=== PATIENT | female | born 1945 | race Caucasian/White ===

== ENCOUNTER 2017-10-03 11:12 | Emergency (ER) | payer BC, OTHER ==
[2017-10-03] MEDS ORDERED: Sodium Chloride 0.9% 2.5 ML Syringe FLUSH PRN (11:37)
[2017-10-03] MEDS ORDERED: Aspirin 81 MG Tab.Chew PO ONE (11:37)
[2017-10-03] MEDS ORDERED: Sodium Chloride 0.9% 10 ML Syringe FLUSH PRN (11:37)
--- NOTE | 2017-10-03 11:43 | EDM.PDOC ---
ED HPI GENERAL MEDICAL PROBLEM - General Chief Complaint: Chest Pain Stated Complaint: CHEST PAIN Time Seen by Provider: 10/03/17 11:15 - History of Present Illness INITIAL COMMENTS - FREE TEXT/NARRATIVE: HISTORY AND PHYSICAL: History of present illness: The patient is a 72-year-old female who follows with Dr. Mendez at [facility] and has a history of hypertension hypercholesterolemia and diabetes for which she takes medications and who presented to the ER today with sudden onset of right upper back pain which radiated to her right upper chest wall which has since resolved. 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 She was not sweaty and lightheaded or dizzy with this and was not nauseated. She has had no urinary complaints no GI complaints respiratory symptoms. She said she did feel little short of breath with it and did not take any medications for it. She put a heating pad on her right upper back and laid down and the pain is now clearly resolved with only a twinge left. Patient says that she had some anxiety in the past and had a heart catheter performed a proximally 2000 which was normal but has not had any heart testing since that time. She has no pulmonary disease she is aware of and has no upper respiratory complaints prior to this event. She has had no recent slips or falls and no recent trauma to the area. She has no breast pain and says that she feels some discomfort when she pushes on her right anterior chest wall area. She has no pain with movement of her upper extremity or neck. She has no neck or back pain. Review of systems: As per history of present illness and below otherwise all systems reviewed and negative. Past medical history: As per history of present illness and as reviewed below otherwise noncontributory. Surgical history: As per history of present illness and as reviewed below otherwise noncontributory. Social history: No reported history of drug or alcohol abuse. Family history: As per history of present illness and as reviewed below otherwise noncontributory. Physical exam: Gen.: Well-developed well-nourished female who is nontoxic and speaking clearly and easily in the ED. Vital signs have been reviewed by me. HEENT: Atraumatic, normocephalic, pupils reactive, negative for conjunctival pallor or scleral icterus, mucous membranes moist, throat clear, neck supple, nontender, trachea midline. Lungs: Clear to auscultation, breath sounds equal bilaterally, chest with slight tenderness to palpation of the right upper outer chest wall area without defects deformities crepitus or soft tissue swelling. There is no work of breathing stridor or sensory muscle use Heart: S1S2, regular, negative for clicks, rubs, or JVD. Abdomen: Soft, nondistended, nontender. Negative for masses or hepatosplenomegaly. Negative for costovertebral tenderness. Pelvis: Stable nontender. Genitourinary: Deferred. Rectal: Deferred. Extremities: Atraumatic, negative for cords or calf pain. Neurovascular unremarkable. No pedal edema or leg asymmetry Neuro: Awake, alert, oriented. Cranial nerves II through XII unremarkable. Cerebellum unremarkable. Motor and sensory unremarkable throughout. Exam nonfocal. Back: There are no midline step-offs tenderness defects of the thoracic or lumbar spine no posterior rib tenderness on the right no soft tissue swelling defects deformities or tenderness with palpation. Diagnostics: EKG chest x-ray CBC CMP INR troponin d-dimer CTA of the chest UA Therapeutics: IV O2 monitor aspirin All testing results were discussed with the patient and daughter at bedside. I have expressed my concern about this sclerotic lesion in the right lateral rib # 3 and the need to have this followed up with her provider in the clinic. Patient states understanding. I have offered the patient an observation admission although this pain is very atypical and she currently is not having any pain but she would prefer to follow-up with her doctor in the clinic. Advised her on reasons to return Impression: Episode of right upper back/right upper chest wall pain resolved; sclerotic lesion in right lateral rib #3 etiology unclear Definitive disposition and diagnosis as appropriate pending reevaluation and review of above. - Related Data Allergies Allergy/AdvReac Type Severity Reaction Status Date / Time No Known Allergies Allergy Verified 10/03/17 11:27 Past Medical History Cardiovascular History: Reports: Hypertension Respiratory History: Reports: Asthma Gastrointestinal History: Reports: Other (See Below) Other Gastrointestinal History: stomach ulcers Psychiatric History: Reports: Anxiety Endocrine/Metabolic History: Reports: Diabetes, Type II Social & Family History - Family History Family Medical History: Noncontributory - Tobacco Use Smoking Status *Q: Never Smoker - Recreational Drug Use Recreational Drug Use: No ED ROS GENERAL - Review of Systems Review Of Systems: ROS reveals no pertinent complaints other than HPI. ED EXAM, GENERAL - Physical Exam Exam: See Below (See dictation) Course - Vital Signs Last Recorded V/S: Last Vital Signs Temp 36.6 C 10/03/17 11:22 Pulse 88 10/03/17 11:22 Resp 20 10/03/17 11:22 BP 165/78 H 10/03/17 11:22 Pulse Ox 96 10/03/17 11:36 - Orders/Labs/Meds Orders: Active Orders 24 hr Category Date Time Status Cardiac Monitoring [RC] . DIRECTED Care 10/03/17 11:36 Active EKG Documentation Completion [RC] STAT Care 10/03/17 11:36 Active Oxygen Therapy, ED [RC] ASDIRECTED Care 10/03/17 11:36 Active Pulse Oximetry [RC] ASDIRECTED Care 10/03/17 11:36 Active Ang Chest [CT] Stat Exams 10/03/17 12:08 Taken Chest 2V [CR] Stat Exams 10/03/17 11:37 Taken UA W/MICROSCOPIC [URIN] Stat Lab 10/03/17 13:00 Received Sodium Chloride 0.9% [Saline Flush] Med 10/03/17 11:37 Active 10 ml FLUSH ASDIRECTED PRN Sodium Chloride 0.9% [Saline Flush] Med 10/03/17 11:37 Active 2.5 ml FLUSH ASDIRECTED PRN Saline Lock Insert [OM.PC] Stat Oth 10/03/17 11:36 Ordered Medication Orders Sodium Chloride (Saline Flush) 10 ml FLUSH ASDIRECTED PRN PRN Reason: Keep Vein Open Last Admin: 10/03/17 11:42 Dose: 10 ml Sodium Chloride (Saline Flush) 2.5 ml FLUSH ASDIRECTED PRN PRN Reason: Keep Vein Open Last Admin: 10/03/17 11:42 Dose: 2.5 ml Labs: Laboratory Tests 10/03/17 10/03/17 10/03/17 Range/Units 11:20 11:20 11:20 WBC 11.21 H (4.0-11.0) K/uL RBC 4.79 (4.30-5.90) M/uL Hgb 13.6 (12.0-16.0) g/dL Hct 42.0 (36.0-46.0) % MCV 87.7 (80.0-98.0) fL MCH 28.4 (27.0-32.0) pg MCHC 32.4 (31.0-37.0) g/dL RDW Std Deviation 47.2 (28.0-62.0) fl RDW Coeff of Saran 15 (11.0-15.0) % Plt Count 371 (150-400) K/uL MPV 9.50 (7.40-12.00) fL Neut % (Auto) 71.8 (48.0-80.0) % Lymph % (Auto) 17.9 (16.0-40.0) % Williamson % (Auto) 8.0 (0.0-15.0) % Eos % (Auto) 2.1 (0.0-7.0) % Baso % (Auto) 0.2 (0.0-1.5) % Neut # (Auto) 8.0 H (1.4-5.7) K/uL Lymph # (Auto) 2.0 (0.6-2.4) K/uL Williamson # (Auto) 0.9 H (0.0-0.8) K/uL Eos # (Auto) 0.2 (0.0-0.7) K/uL Baso # (Auto) 0.0 (0.0-0.1) K/uL Nucleated RBC % 0.0 /100WBC Nucleated RBCs # 0 K/uL INR 0.96 (0.86-1.11) D-Dimer, Quantitative 0.57 H (0.0-0.52) mg/LFEU Sodium 140 (136-146) mmol/L Potassium 3.5 (3.5-5.1) mmol/L Chloride 103 (98-110) mmol/L Carbon Dioxide 26 (21-31) mmol/L BUN 15 (6.0-23.0) mg/dL Creatinine 0.8 (0.6-1.5) mg/dL Est Cr Clr Drug Dosing 56.50 mL/min Estimated GFR (MDRD) > 60.0 ml/min Glucose 100 (60-110) mg/dL Calcium 9.9 (8.8-10.8) mg/dL Total Bilirubin 0.5 (0.1-1.5) mg/dL AST 22 (5-40) IU/L ALT 30 (8-54) IU/L Alkaline Phosphatase 143 (40-150) Troponin I < 0.10 (0.0-0.29) NG/ML Total Protein 8.3 H (6.0-8.0) g/dL Albumin 4.3 (3.4-4.8) g/dL Globulin 4.0 H (2.0-3.5) g/dL Albumin/Globulin Ratio 1.1 L (1.3-2.8) Meds: Medications Generic Name Dose Route Start Last Admin Trade Name Freq PRN Reason Stop Dose Admin Sodium Chloride 10 ml 10/03/17 11:37 10/03/17 11:42 Saline Flush FLUSH 10 ml ASDIRECTED PRN Administration Keep Vein Open Sodium Chloride 2.5 ml 10/03/17 11:37 10/03/17 11:42 Saline Flush FLUSH 2.5 ml ASDIRECTED PRN Administration Keep Vein Open Discontinued Medications Generic Name Dose Route Start Last Admin Trade Name Freq PRN Reason Stop Dose Admin Aspirin 324 mg 10/03/17 11:37 10/03/17 11:42 Aspirin PO 10/03/17 11:38 324 mg ONETIME ONE Administration Departure - Departure Time of Disposition: 14:06 Disposition: Home, Self-Care 01 Condition: Good Clinical Impression: Right-sided chest pain - Discharge Information Referrals: PCP,None [Primary Care Provider] - Forms: ED Department Discharge Additional Instructions: The following information is given to patients seen in the emergency department who are being discharged to home. This information is to outline your options for follow-up care. We provide all patients seen in our emergency department with a follow-up referral. The need for follow-up, as well as the timing and circumstances, are variable depending upon the specifics of your emergency department visit. If you don't have a primary care physician on staff, we will provide you with a referral. We always advise you to contact your personal physician following an emergency department visit to inform them of the circumstance of the visit and for follow-up with them and/or the need for any referrals to a consulting specialist. The emergency department will also refer you to a specialist when appropriate. This referral assures that you have the opportunity for followup care with a specialist. All of these measure are taken in an effort to provide you with optimal care, which includes your followup. Under all circumstances we always encourage you to contact your private physician who remains a resource for coordinating your care. When calling for followup care, please make the office aware that this follow-up is from your recent emergency room visit. If for any reason you are refused follow-up, please contact the [facility] emergency department at and ask to speak to the emergency department charge nurse. [address] [place] [address] [facility] Primary care- Internal Medicine and Family [address] [address] Please contact your provider at [facility], Dr. Doan, for further care and evaluation of the sclerotic lesion in the right rib #3 found on CAT scan. Please also follow up with him for further care and evaluation of the chest pain he experienced this morning. Please return to ER as needed and as discussed - My Orders Last 24 Hours: My Active Orders 10/03/17 11:36 Cardiac Monitoring [RC] . DIRECTED EKG Documentation Completion [RC] STAT Oxygen Therapy, ED [RC] ASDIRECTED Pulse Oximetry [RC] ASDIRECTED Saline Lock Insert [OM.PC] Stat 10/03/17 11:37 Chest 2V [CR] Stat Sodium Chloride 0.9% [Saline Flush] 10 ml FLUSH ASDIRECTED PRN Sodium Chloride 0.9% [Saline Flush] 2.5 ml FLUSH ASDIRECTED PRN 10/03/17 12:08 Ang Chest [CT] Stat 10/03/17 13:00 UA W/MICROSCOPIC [URIN] Stat - Assessment/Plan Last 24 Hours: My Active Orders 10/03/17 11:36 Cardiac Monitoring [RC] . DIRECTED EKG Documentation Completion [RC] STAT Oxygen Therapy, ED [RC] ASDIRECTED Pulse Oximetry [RC] ASDIRECTED Saline Lock Insert [OM.PC] Stat 10/03/17 11:37 Chest 2V [CR] Stat Sodium Chloride 0.9% [Saline Flush] 10 ml FLUSH ASDIRECTED PRN Sodium Chloride 0.9% [Saline Flush] 2.5 ml FLUSH ASDIRECTED PRN 10/03/17 12:08 Ang Chest [CT] Stat 10/03/17 13:00 UA W/MICROSCOPIC [URIN] Stat
[2017-10-03 11:58] LABS: CHLORIDE,CL 103 mmol/L (98-110); SODIUM,NA 140 mmol/L (136-146)
[2017-10-03] MEDS ORDERED: Iopamidol 755 MG/ML 200 ML Multipack Bottle IVPUSH STA (16:34)
--- NOTE | 2017-10-04 20:19 | CR ---
EXAM DATE: 10/03/17 PATIENT'S AGE: 72 Patient: JOLANTA COOPER Facility: [place], [place] Site . Site : 1945 Study: XRay Chest [id number] 12:04:31 PM Ordering Physician: Chary Menjivar Final Report: HISTORY: Chest pain and shortness of breath. Findings: Two views of the chest or provided. Two views of the chest or provided. The lungs are clear and there is no evidence for pleural effusion or pneumothorax. Cardiac silhouette size appears mildly enlarged. Impression: Mild cardiac silhouette enlargement which could represent cardiomegaly, pericardial effusion or both. Dictated by Harjeet Argueta MD @ Oct 03 2017 12:34PM (Electronic Signature) Report Signed by Proxy. [place]
--- NOTE | 2017-10-04 20:20 | CT ---
EXAM DATE: 10/03/17 PATIENT'S AGE: 72 Patient: JOLANTA COOPER Facility: [place], [place] Site . Site : 1945 Study: CT Chest Angio [id number] 12:53:03 PM Ordering Physician: Chary Menjivar Final Report: INDICATION: Right-sided chest pain. Positive D-dimer. TECHNIQUE: CT chest pulmonary angiogram acquired with IV contrast. COMPARISON: Chest radiograph 10/03/2017. FINDINGS: Cardiovascular structures: Normal vascular enhancement of the pulmonary arteries , no sign of pulmonary embolism. Heart size is borderline to mildly enlarged. There are coronary artery calcifications. The aorta is normal in caliber. There is atherosclerotic calcification of the aorta. Mediastinum and stephanie: There are prominent but not enlarged. AP window lymph nodes. No hilar lymphadenopathy. Lungs: No pneumothorax. No suspicious lung nodules. There is mosaic attenuation of the lung parenchyma. No lobar consolidation. Pleura and pericardium: No effusions. Chest wall and axilla: No mass or adenopathy. Bones: No acute abnormality. Nonspecific 9 mm sclerotic lesion in right lateral rib 3. Upper abdomen: There are surgical clips at the GE junction. IMPRESSION: 1. No pulmonary embolus or pneumonia. 2. Mosaic lung attenuation is nonspecific but can be seen with small airway disease. 3. Nonspecific 9 mm sclerotic lesion in the right lateral rib 3. If the patient has a known primary malignancy, further evaluation is warranted. Dictated by Brad Rojo MD @ 10/03/2017 1:46:39 PM Dictated by: Brad Rojo MD @ 10/03/2017 13:46:51 (Electronic Signature) Report Signed by Proxy. [facility]
== END 2017-10-03 14:25 | disposition home or self-care (01) ==
LOC: MW.ED 11:12
DX: R07.89 Other chest pain (principal); M54.6 Pain in thoracic spine; M89.9 Disorder of bone, unspecified; I10 Essential (primary) hypertension; E78.00 Pure hypercholesterolemia, unspecified; E11.9 Type 2 diabetes mellitus without complications
CPT/HCPCS: 36415; 71046; 71275; 80053; 84484; 85025; 85379; 85610; 93005; 99285; A9270; Q9967

== ENCOUNTER 2019-06-22 08:36 | Emergency (ER) | payer MEDICARE, BC ==
[2019-06-22] MEDS ORDERED: Sodium Chloride 0.9% 10 ML Syringe FLUSH PRN (08:53)
[2019-06-22] MEDS ORDERED: Sodium Chloride 0.9% 2.5 ML Syringe FLUSH PRN (08:53)
[2019-06-22] MEDS ORDERED: Aspirin 81 MG Tab.Chew PO ONE (08:53)
[2019-06-22] MEDS ORDERED: Famotidine 20 MG/2 ML SDV IVPUSH ONE (08:53)
[2019-06-22 09:58] LABS: BLOOD UREA NITROGEN,BUN 16 mg/dL (7.0-18.0); CARBON DIOXIDE,CO2 26.1 mmol/L (21.0-32.0); CHLORIDE,CL 99 mmol/L (98-107); GLUCOSE RANDOM 183 mg/dL (74-106); POTASSIUM,K 3.8 mmol/L (3.5-5.1); SODIUM,NA 137 mmol/L (136-145)
--- NOTE | 2019-06-22 10:16 | CR ---
INDICATION: Chest pain. COMPARISON: 10/03/2017. TECHNIQUE: Single view of the chest. FINDINGS: Cardiac silhouette is mildly enlarged, unchanged. Atherosclerosis of the thoracic aorta is again noted. Surgical clips in the upper abdomen are unchanged. No focal lung consolidation, pleural effusion or pneumothorax. Cardiac leads overlie the chest. IMPRESSION: No acute cardiopulmonary abnormality. Stable cardiomegaly. Dictated by Guzman Martinez MD @ Jun 22 2019 10:13AM Signed by Dr. Guzman Martinez @ Jun 22 2019 10:15AM
--- NOTE | 2019-06-22 10:18 | EDM.PDOC ---
ED HPI GENERAL MEDICAL PROBLEM - General Chief Complaint: Chest Pain Stated Complaint: CHEST PAIN Time Seen by Provider: 06/22/19 08:46 Source of Information: Reports: Patient History Limitations: Reports: No Limitations - History of Present Illness INITIAL COMMENTS - FREE TEXT/NARRATIVE: History of present illness: []She complains of chest pain radiating through to her back while she was at work approximately a half prior to arrival. Pain has now subsided but still hurts when she takes a deep breath. She denies fevers, cough, nausea, vomiting, dizziness lightheadedness or syncope. Review of systems: As per history of present illness and below otherwise all systems reviewed and negative. Past medical history: As per history of present illness and as reviewed below otherwise noncontributory. Surgical history: As per history of present illness and as reviewed below otherwise noncontributory. Social history: No reported history of drug or alcohol abuse. Family history: As per history of present illness and as reviewed below otherwise noncontributory. Physical exam: General: Well developed, well nourished in NAD HEENT: Atraumatic, normocephalic, pupils reactive, negative for conjunctival pallor or scleral icterus, mucous membranes moist, throat clear, neck supple, nontender, trachea midline. Lungs: Clear to auscultation, breath sounds equal bilaterally, chest nontender. Heart: S1S2, regular, negative for clicks, rubs, or JVD. Abdomen: NABS, Soft, nondistended, nontender. Negative for masses or hepatosplenomegaly. Negative for costovertebral tenderness. Pelvis: Stable nontender. Genitourinary: Deferred. Rectal: Deferred. Extremities: Atraumatic, negative for cords or calf pain. Neurovascular unremarkable. Neuro: Awake, alert, oriented. Cranial nerves II through XII unremarkable. Cerebellum unremarkable. Motor and sensory unremarkable throughout. Exam nonfocal. Skin:warm and dry Diagnostics: CBC, chemistry, troponin, chest x-ray, d-dimer, EKG-cup all negative Therapeutics: Aspirin, Pepcid ED Course: Stable. I explained to patient that I could not rule out [place] in the ED given the timeframe of her pain she is refusing admission signed out AMA Impression: Chest pain Prescriptions: None Plan: Take meds as directed, follow up with your primary care physician, return to ER if symptoms worsen or change. Definitive disposition and diagnosis as appropriate pending reevaluation and review of above. Chest Pain Score (Numeric/FACES): 1 - Related Data Allergies Allergy/AdvReac Type Severity Reaction Status Date / Time No Known Allergies Allergy Verified 06/22/19 08:43 Home Meds: Home Meds Aspirin 81 mg PO DAILY 10/03/17 [History] Cyanocobalamin (Vitamin B12) [Vitamin B12] 1,000 mcg PO DAILY 10/03/17 [History] metFORMIN [Glucophage XR] 500 mg PO BID 10/03/17 [History] amLODIPine [Norvasc] 1 tab DAILY 06/22/19 [History] atorvaSTATin [Lipitor] 40 mg PO BEDTIME 06/22/19 [History] Past Medical History Cardiovascular History: Reports: High Cholesterol, Hypertension Respiratory History: Reports: Asthma Gastrointestinal History: Reports: Other (See Below) Other Gastrointestinal History: stomach ulcers TITLE MANAGER History: Reports: Psychiatric History: Reports: Anxiety Endocrine/Metabolic History: Reports: Diabetes, Type II - Past Surgical History GI Surgical History: Reports: Appendectomy, Other (See Below) Other GI Surgeries/Procedures: ulcer surgery Social & Family History - Family History Family Medical History: Noncontributory - Tobacco Use Smoking Status *Q: Never Smoker - Recreational Drug Use Recreational Drug Use: No ED ROS GENERAL - Review of Systems Review Of Systems: See Below ED EXAM, GENERAL - Physical Exam Exam: See Below Course - Vital Signs Last Recorded V/S: Last Vital Signs Temp 96.5 F 06/22/19 08:40 Pulse 72 06/22/19 08:40 Resp 18 06/22/19 08:40 BP 164/69 H 06/22/19 08:40 Pulse Ox 98 06/22/19 08:40 - Orders/Labs/Meds Orders: Active Orders 24 hr Category Date Time Status Cardiac Monitoring [RC] . DIRECTED Care 06/22/19 08:53 Active EKG Documentation Completion [RC] STAT Care 06/22/19 08:54 Active Sodium Chloride 0.9% [Saline Flush] Med 06/22/19 08:53 Active 10 ml FLUSH ASDIRECTED PRN Sodium Chloride 0.9% [Saline Flush] Med 06/22/19 08:53 Active 2.5 ml FLUSH ASDIRECTED PRN Saline Lock Insert [OM.PC] Stat Oth 06/22/19 08:53 Ordered Medication Orders Sodium Chloride (Saline Flush) 10 ml FLUSH ASDIRECTED PRN PRN Reason: Keep Vein Open Sodium Chloride (Saline Flush) 2.5 ml FLUSH ASDIRECTED PRN PRN Reason: Keep Vein Open Labs: Laboratory Tests 06/22/19 06/22/19 06/22/19 Range/Units 09:10 09:10 09:10 WBC 10.14 (4.0-11.0) K/uL RBC 4.13 L (4.30-5.90) M/uL Hgb 12.0 (12.0-16.0) g/dL Hct 36.6 (36.0-46.0) % MCV 88.6 (80.0-98.0) fL MCH 29.1 (27.0-32.0) pg MCHC 32.8 (31.0-37.0) g/dL RDW Std Deviation 45.3 (28.0-62.0) fl RDW Coeff of Saran 14 (11.0-15.0) % Plt Count 397 (150-400) K/uL MPV 9.30 (7.40-12.00) fL Neut % (Auto) 68.6 (48.0-80.0) % Lymph % (Auto) 20.0 (16.0-40.0) % Sutter % (Auto) 8.6 (0.0-15.0) % Eos % (Auto) 2.6 (0.0-7.0) % Baso % (Auto) 0.2 (0.0-1.5) % Neut # (Auto) 7.0 H (1.4-5.7) K/uL Lymph # (Auto) 2.0 (0.6-2.4) K/uL Sutter # (Auto) 0.9 H (0.0-0.8) K/uL Eos # (Auto) 0.3 (0.0-0.7) K/uL Baso # (Auto) 0.0 (0.0-0.1) K/uL D-Dimer, Quantitative 0.39 (0.0-0.50) mg/L FEU Sodium 137 (136-145) mmol/L Potassium 3.8 (3.5-5.1) mmol/L Chloride 99 (98-107) mmol/L Carbon Dioxide 26.1 (21.0-32.0) mmol/L BUN 16 (7.0-18.0) mg/dL Creatinine 1.0 (0.6-1.0) mg/dL Est Cr Clr Drug Dosing 45.76 mL/min Estimated GFR (MDRD) 54.5 ml/min Glucose 183 H (74-106) mg/dL Calcium 9.0 (8.5-10.1) mg/dL Total Bilirubin 0.4 (0.2-1.0) mg/dL AST 17 (15-37) IU/L ALT 28 (14-63) IU/L Alkaline Phosphatase 131 H (46-116) U/L Troponin I < 0.050 (0.000-0.056) ng/mL Total Protein 7.4 (6.4-8.2) g/dL Albumin 3.3 L (3.4-5.0) g/dL Globulin 4.1 H (2.6-4.0) g/dL Albumin/Globulin Ratio 0.8 L (0.9-1.6) Meds: Medications Generic Name Dose Route Start Last Admin Trade Name Freq PRN Reason Stop Dose Admin Sodium Chloride 10 ml 06/22/19 08:53 Saline Flush FLUSH ASDIRECTED PRN Keep Vein Open Sodium Chloride 2.5 ml 06/22/19 08:53 Saline Flush FLUSH ASDIRECTED PRN Keep Vein Open Discontinued Medications Generic Name Dose Route Start Last Admin Trade Name Freq PRN Reason Stop Dose Admin Aspirin 324 mg 06/22/19 08:53 06/22/19 09:26 Aspirin PO 06/22/19 08:54 324 mg ONETIME ONE Administration Famotidine 20 mg 06/22/19 08:53 06/22/19 09:27 Pepcid IVPUSH 06/22/19 08:54 20 mg ONETIME ONE Administration Departure - Departure Time of Disposition: 09:30 Disposition: Against Medical Advice 07 Condition: Good Clinical Impression: Chest pain Qualifiers: Chest pain type: unspecified Qualified Code(s): R07.9 - Chest pain, unspecified Instructions: Nonspecific Chest Pain, [id number] Referrals: PCP,Unknown [Primary Care Provider] - Forms: ED Department Discharge Additional Instructions: The following information is given to patients seen in the emergency department who are being discharged to home. This information is to outline your options for follow-up care. We provide all patients seen in our emergency department with a follow-up referral. The need for follow-up, as well as the timing and circumstances, are variable depending upon the specifics of your emergency department visit. If you don't have a primary care physician on staff, we will provide you with a referral. We always advise you to contact your personal physician following an emergency department visit to inform them of the circumstance of the visit and for follow-up with them and/or the need for any referrals to a consulting specialist. The emergency department will also refer you to a specialist when appropriate. This referral assures that you have the opportunity for follow-up care with a specialist. All of these measure are taken in an effort to provide you with optimal care, which includes your follow-up. Under all circumstances we always encourage you to contact your private physician who remains a resource for coordinating your care. When calling for follow-up care, please make the office aware that this follow-up is from your recent emergency room visit. If for any reason you are refused follow-up, please contact the [facility] Emergency Department at and asked to speak to the emergency department charge nurse. Take meds as directed, follow up with your primary care physician, return to ER if symptoms worsen or change. [facility] Primary Care [address] [place] [phone] - My Orders Last 24 Hours: My Active Orders 06/22/19 08:53 Cardiac Monitoring [RC] . DIRECTED Sodium Chloride 0.9% [Saline Flush] 10 ml FLUSH ASDIRECTED PRN Sodium Chloride 0.9% [Saline Flush] 2.5 ml FLUSH ASDIRECTED PRN Saline Lock Insert [OM.PC] Stat 06/22/19 08:54 EKG Documentation Completion [RC] STAT - Assessment/Plan Last 24 Hours: My Active Orders 06/22/19 08:53 Cardiac Monitoring [RC] . DIRECTED Sodium Chloride 0.9% [Saline Flush] 10 ml FLUSH ASDIRECTED PRN Sodium Chloride 0.9% [Saline Flush] 2.5 ml FLUSH ASDIRECTED PRN Saline Lock Insert [OM.PC] Stat 06/22/19 08:54 EKG Documentation Completion [RC] STAT
== END 2019-06-22 10:37 | disposition left against medical advice (07) ==
LOC: MW.ED 08:36
DX: R07.9 Chest pain, unspecified (principal); I10 Essential (primary) hypertension; E78.00 Pure hypercholesterolemia, unspecified; E11.9 Type 2 diabetes mellitus without complications; Z79.82 Long term (current) use of aspirin; Z79.84 Long term (current) use of oral hypoglycemic drugs; Z79.899 Other long term (current) drug therapy
CPT/HCPCS: 36415; 71045; 80053; 84484; 85025; 85379; 93005; 96374; 99285; A9270; J3490

== ENCOUNTER 2019-10-28 11:43 | Emergency (ER) | payer MEDICARE, BC ==
[2019-10-28] MEDS ORDERED: Albuterol/Ipratropium 3.0-0.5 MG/3 ML Neb Soln NEB ONE (12:29)
[2019-10-28 12:58] LABS: POTASSIUM,K 3.5 mmol/L (3.5-5.1)
--- NOTE | 2019-10-28 13:00 | CR ---
Chest: Portable view of the chest was obtained. Comparison: Prior chest x-ray of 06/22/19. Heart size is normal. Tortuous thoracic aorta is seen. Lungs are clear. Bony structures are grossly intact. Surgical clips are seen at the gastroesophageal junction. Impression: 1. Nothing acute is seen on portable chest x-ray. Diagnostic code #2 This report was dictated in [place] Standard Time
[2019-10-28] MEDS ORDERED: Ondansetron 4 MG Tab.DIS PO ONE (13:23)
--- NOTE | 2019-10-28 13:24 | EDM.PDOC ---
ED HPI GENERAL MEDICAL PROBLEM - General Chief Complaint: General Stated Complaint: FEELS SICK Time Seen by Provider: 10/28/19 13:21 Source of Information: Reports: Patient - History of Present Illness INITIAL COMMENTS - FREE TEXT/NARRATIVE: HISTORY AND PHYSICAL: History of present illness: [Presents with general malaise, she had seen her provider last week diagnosed with viral syndrome, she does appear flulike however alert interactive decreased appetite but eating over the last couple of days and taking fluids well no current fever nausea vomiting chills sweats no chest pain she was up and doing some shopping and had some chest tightness with shortness of breath along with cough more consistent with a viral syndrome no radiation arm neck or jaw no diaphoresis no distress no pain at current DuoNeb improved shortness of breath however patient was quite jittery after the treatment ] Review of systems: As per history of present illness and below otherwise all systems reviewed and negative. Past medical history: As per history of present illness and as reviewed below otherwise noncontributory. Surgical history: As per history of present illness and as reviewed below otherwise noncontributory. Social history: No reported history of drug or alcohol abuse. Family history: As per history of present illness and as reviewed below otherwise noncontributory. Physical exam: HEENT: Atraumatic, normocephalic, pupils reactive, negative for conjunctival pallor or scleral icterus, mucous membranes moist, throat clear, neck supple, nontender, trachea midline. Lungs: Clear to auscultation, breath sounds equal bilaterally, chest nontender. Heart: S1S2, regular, negative for clicks, rubs, or JVD. Abdomen: Soft, nondistended, nontender. Negative for masses or hepatosplenomegaly. Negative for costovertebral tenderness. Pelvis: Stable nontender. Genitourinary: Deferred. Rectal: Deferred. Extremities: Atraumatic, negative for cords or calf pain. Neurovascular unremarkable. Neuro: Awake, alert, oriented. Cranial nerves II through XII unremarkable. Cerebellum unremarkable. Motor and sensory unremarkable throughout. Exam nonfocal. Diagnostics: [See CMP UA troponin EKG Chest 1 view ] Therapeutics: [Fluids nutrition Work note phenergan/codiene pt offered admission for observation-refused ] Impression: [viral syndrome] Definitive disposition and diagnosis as appropriate pending reevaluation and review of above. - Related Data Allergies Allergy/AdvReac Type Severity Reaction Status Date / Time No Known Allergies Allergy Verified 10/28/19 12:00 Home Meds: Home Meds Cyanocobalamin (Vitamin B12) [Vitamin B12] 1,000 mcg PO DAILY 10/03/17 [History] amLODIPine [Norvasc] 1 tab DAILY 06/22/19 [History] atorvaSTATin [Lipitor] 40 mg PO BEDTIME 06/22/19 [History] Benazepril/Hydrochlorothiazide [Benazepril-Hctz 20-12.5 mg Tab] 1 each PO DAILY 10/28/19 [History] Pioglitazone HCl/Metformin HCl [Pioglitazone-Metformin 15-850] 1 each PO BID [History] Past Medical History Cardiovascular History: Reports: High Cholesterol, Hypertension Respiratory History: Reports: Asthma Gastrointestinal History: Reports: Other (See Below) Other Gastrointestinal History: stomach ulcers [employer]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: Psychiatric History: Reports: Anxiety Endocrine/Metabolic History: Reports: Diabetes, Type II - Infectious Disease History Infectious Disease History: Reports: Chicken Pox, Measles - Past Surgical History GI Surgical History: Reports: Appendectomy, Other (See Below) Other GI Surgeries/Procedures: ulcer surgery Social & Family History - Family History Family Medical History: Noncontributory - Tobacco Use Smoking Status *Q: Never Smoker - Caffeine Use Caffeine Use: Reports: Soda - Recreational Drug Use Recreational Drug Use: No ED ROS GENERAL - Review of Systems Review Of Systems: See Below ED EXAM, GENERAL - Physical Exam Exam: See Below Course - Vital Signs Last Recorded V/S: Last Vital Signs Temp 97.4 F 10/28/19 12:02 Pulse 77 10/28/19 12:02 Resp 16 10/28/19 12:02 BP 130/50 L 10/28/19 12:02 Pulse Ox 97 10/28/19 12:02 - Orders/Labs/Meds Orders: Active Orders 24 hr Category Date Time Status EKG 12 Lead [EKG Documentation Completion] [RC] STAT Care 10/28/19 12:06 Active RT Aerosol Therapy [RC] ASDIRECTED Care 10/28/19 12:29 Active UA RFX WERO AND CULT IF INDIC [URIN] Stat Lab 10/28/19 12:06 Ordered Labs: Laboratory Tests 10/28/19 10/28/19 Range/Units 12:31 12:31 WBC 8.52 (4.0-11.0) K/uL RBC 4.17 L (4.30-5.90) M/uL Hgb 12.0 (12.0-16.0) g/dL Hct 35.3 L (36.0-46.0) % MCV 84.7 (80.0-98.0) fL MCH 28.8 (27.0-32.0) pg MCHC 34.0 (31.0-37.0) g/dL RDW Std Deviation 43.4 (28.0-62.0) fl RDW Coeff of [place]an 14 (11.0-15.0) % Plt Count 347 (150-400) K/uL MPV 9.20 (7.40-12.00) fL Neut % (Auto) 67.8 (48.0-80.0) % Lymph % (Auto) 18.5 (16.0-40.0) % [place] % (Auto) 11.9 (0.0-15.0) % Eos % (Auto) 1.6 (0.0-7.0) % Baso % (Auto) 0.2 (0.0-1.5) % Neut # (Auto) 5.8 H (1.4-5.7) K/uL Lymph # (Auto) 1.6 (0.6-2.4) K/uL [place] # (Auto) 1.0 H (0.0-0.8) K/uL Eos # (Auto) 0.1 (0.0-0.7) K/uL Baso # (Auto) 0.0 (0.0-0.1) K/uL Nucleated RBC % 0.0 /100WBC Nucleated RBCs # 0 K/uL Sodium 131 L (136-145) mmol/L Potassium 3.5 (3.5-5.1) mmol/L Chloride 94 L (98-107) mmol/L Carbon Dioxide 26.0 (21.0-32.0) mmol/L BUN 17 (7.0-18.0) mg/dL Creatinine 1.1 H (0.6-1.0) mg/dL Est Cr Clr Drug Dosing 41.60 mL/min Estimated GFR (MDRD) 48.8 ml/min Glucose 148 H (74-106) mg/dL Calcium 9.1 (8.5-10.1) mg/dL Total Bilirubin 0.4 (0.2-1.0) mg/dL AST 16 (15-37) IU/L ALT 24 (14-63) IU/L Alkaline Phosphatase 119 H (46-116) U/L Total Protein 7.5 (6.4-8.2) g/dL Albumin 3.3 L (3.4-5.0) g/dL Globulin 4.2 H (2.6-4.0) g/dL Albumin/Globulin Ratio 0.8 L (0.9-1.6) Meds: Medications Discontinued Medications Generic Name Dose Route Start Last Admin Trade Name Freq PRN Reason Stop Dose Admin Albuterol/Ipratropium 3 ml 10/28/19 12:29 10/28/19 12:42 Duoneb 3.0-0.5 Mg/3 Ml NEB 10/28/19 12:30 3 ml ONETIME ONE Administration Departure - Departure Time of Disposition: 13:23 Disposition: Home, Self-Care 01 Condition: Good Clinical Impression: Viral syndrome - Discharge Information Referrals: Gavin Doan MD [Primary Care Provider] - Additional Instructions: Patient is prescribed Return if symptoms persist or worsen or if new concerning symptoms develop Follow-up with primary care in 2 weeks The following information is given to patients seen in the emergency department who are being discharged to home. This information is to outline your options for follow-up care. We provide all patients seen in our emergency department with a follow-up referral. The need for follow-up, as well as the timing and circumstances, are variable depending upon the specifics of your emergency department visit. If you don't have a primary care physician on staff, we will provide you with a referral. We always advise you to contact your personal physician following an emergency department visit to inform them of the circumstance of the visit and for follow-up with them and/or the need for any referrals to a consulting specialist. The emergency department will also refer you to a specialist when appropriate. This referral assures that you have the opportunity for follow-up care with a specialist. All of these measure are taken in an effort to provide you with optimal care, which includes your follow-up. Under all circumstances we always encourage you to contact your private physician who remains a resource for coordinating your care. When calling for follow-up care, please make the office aware that this follow-up is from your recent emergency room visit. If for any reason you are refused follow-up, please contact the [facility] emergency department at and asked to speak to the emergency department charge nurse. Sepsis Event Note - Evaluation Sepsis Screening Result: No Definite Risk - Focused Exam Vital Signs: Vital Signs Temp Pulse Resp BP Pulse Ox 10/28/19 12:02 97.4 F 77 16 130/50 L 97 Date Exam was Performed: 10/28/19 Time Exam was Performed: 13:21 - My Orders Last 24 Hours: My Active Orders 10/28/19 12:06 EKG 12 Lead [EKG Documentation Completion] [RC] STAT UA RFX WERO AND CULT IF INDIC [URIN] Stat 10/28/19 12:29 RT Aerosol Therapy [RC] ASDIRECTED - Assessment/Plan Last 24 Hours: My Active Orders 10/28/19 12:06 EKG 12 Lead [EKG Documentation Completion] [RC] STAT UA RFX WERO AND CULT IF INDIC [URIN] Stat 10/28/19 12:29 RT Aerosol Therapy [RC] ASDIRECTED
== END 2019-10-28 14:15 | disposition home or self-care (01) ==
LOC: MW.ED 11:43
DX: B34.9 Viral infection, unspecified (principal); E78.00 Pure hypercholesterolemia, unspecified; I10 Essential (primary) hypertension; J45.909 Unspecified asthma, uncomplicated; E11.9 Type 2 diabetes mellitus without complications; Z79.899 Other long term (current) drug therapy; Z79.84 Long term (current) use of oral hypoglycemic drugs
CPT/HCPCS: 36415; 71045; 80053; 81001; 85025; 87086; 87804; 93005; 94640; 99285; A9270; J7620-GY

== ENCOUNTER 2019-10-31 08:18 | Observation (INO) | payer MEDICARE, BC ==
[2019-10-31] MEDS ORDERED: Ondansetron 4 MG/2 ML SDV IVPUSH ONE (08:31)
--- NOTE | 2019-10-31 08:33 | EDM.PDOC ---
ED HPI GENERAL MEDICAL PROBLEM - General Chief Complaint: Gastrointestinal Problem Stated Complaint: FEELING ILL,UNABLE TO KEEP ANYTHING DOWN Time Seen by Provider: 10/31/19 08:33 Source of Information: Reports: Patient - History of Present Illness INITIAL COMMENTS - FREE TEXT/NARRATIVE: HISTORY AND PHYSICAL: History of present illness: [Patient returns to emergency room, she was seen 3 days prior with nausea vomiting at which time she was hydrated and discharged she did have evidence of UTI and was provided Cipro . Urine is returned as mixed constance and has cleared] Patient continues to have intractable nausea and vomiting unable to keep any fluids down she does have some skin tenting and dry oral mucosa no fever chills sweats chest pain shortness of breath headache dizziness or palpitation she does complain of general malaise Review of systems: As per history of present illness and below otherwise all systems reviewed and negative. Past medical history: As per history of present illness and as reviewed below otherwise noncontributory. Surgical history: As per history of present illness and as reviewed below otherwise noncontributory. Social history: No reported history of drug or alcohol abuse. Family history: As per history of present illness and as reviewed below otherwise noncontributory. Physical exam: HEENT: Atraumatic, normocephalic, pupils reactive, negative for conjunctival pallor or scleral icterus, mucous membranes moist, throat clear, neck supple, nontender, trachea midline. Lungs: Clear to auscultation, breath sounds equal bilaterally, chest nontender. Heart: S1S2, regular, negative for clicks, rubs, or JVD. Abdomen: Soft, nondistended, nontender. Negative for masses or hepatosplenomegaly. Negative for costovertebral tenderness. Pelvis: Stable nontender. Genitourinary: Deferred. Rectal: Deferred. Extremities: Atraumatic, negative for cords or calf pain. Neurovascular unremarkable. Neuro: Awake, alert, oriented. Cranial nerves II through XII unremarkable. Cerebellum unremarkable. Motor and sensory unremarkable throughout. Exam nonfocal. Diagnostics: [See BMP UA ] Therapeutics: [Saline Zofran Rocephin ] Impression: [Duration Intractable nausea Chronic history of baseline] Definitive disposition and diagnosis as appropriate pending reevaluation and review of above. - Related Data Allergies Allergy/AdvReac Type Severity Reaction Status Date / Time No Known Allergies Allergy Verified 10/31/19 08:33 Home Meds: Home Meds Cyanocobalamin (Vitamin B12) [Vitamin B12] 1,000 mcg PO DAILY 10/03/17 [History] amLODIPine [Norvasc] 1 tab DAILY 06/22/19 [History] atorvaSTATin [Lipitor] 40 mg PO BEDTIME 06/22/19 [History] Benazepril/Hydrochlorothiazide [Benazepril-Hctz 20-12.5 mg Tab] 1 each PO DAILY 10/28/19 [History] Pioglitazone HCl/Metformin HCl [Pioglitazone-Metformin 15-850] 1 each PO BID [History] Past Medical History Cardiovascular History: Reports: High Cholesterol, Hypertension Respiratory History: Reports: Asthma Gastrointestinal History: Reports: Other (See Below) Other Gastrointestinal History: stomach ulcers 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: Psychiatric History: Reports: Anxiety Endocrine/Metabolic History: Reports: Diabetes, Type II - Infectious Disease History Infectious Disease History: Reports: Chicken Pox, Measles - Past Surgical History GI Surgical History: Reports: Appendectomy, Other (See Below) Other GI Surgeries/Procedures: ulcer surgery Social & Family History - Family History Family Medical History: Noncontributory - Caffeine Use Caffeine Use: Reports: Soda ED ROS GENERAL - Review of Systems Review Of Systems: See Below ED EXAM, GENERAL - Physical Exam Exam: See Below Course - Vital Signs Last Recorded V/S: Last Vital Signs Temp 96.1 F 10/31/19 08:33 Pulse 61 10/31/19 08:33 Resp 16 10/31/19 08:33 BP 160/64 H 10/31/19 08:33 Pulse Ox 99 10/31/19 08:33 - Orders/Labs/Meds Orders: Active Orders 24 hr Category Date Time Status Sodium Chloride 0.9% [Normal Saline] 1,000 ml Med 10/31/19 08:45 Active IV STAT Sodium Chloride 0.9% [Normal Saline] 500 ml Med 10/31/19 08:45 Active IV STAT Medication Orders Sodium Chloride (Normal Saline) 500 mls @ 999 mls/hr IV STAT MELANY Last Admin: 10/31/19 09:17 Dose: 999 mls/hr Sodium Chloride (Normal Saline) 1,000 mls @ 125 mls/hr IV STAT MELANY Last Admin: 10/31/19 09:13 Dose: 125 mls/hr Labs: Laboratory Tests 10/31/19 10/31/19 10/31/19 Range/Units 08:40 08:40 09:21 WBC 8.99 (4.0-11.0) K/uL RBC 4.35 (4.30-5.90) M/uL Hgb 12.4 (12.0-16.0) g/dL Hct 36.5 (36.0-46.0) % MCV 83.9 (80.0-98.0) fL MCH 28.5 (27.0-32.0) pg MCHC 34.0 (31.0-37.0) g/dL RDW Std Deviation 43.6 (28.0-62.0) fl RDW Coeff of [place] 14 (11.0-15.0) % Plt Count 405 H (150-400) K/uL MPV 9.10 (7.40-12.00) fL Neut % (Auto) 73.1 (48.0-80.0) % Lymph % (Auto) 16.4 (16.0-40.0) % [place] % (Auto) 9.2 (0.0-15.0) % Eos % (Auto) 1.2 (0.0-7.0) % Baso % (Auto) 0.1 (0.0-1.5) % Neut # (Auto) 6.6 H (1.4-5.7) K/uL Lymph # (Auto) 1.5 (0.6-2.4) K/uL [place] # (Auto) 0.8 (0.0-0.8) K/uL Eos # (Auto) 0.1 (0.0-0.7) K/uL Baso # (Auto) 0.0 (0.0-0.1) K/uL Nucleated RBC % 0.0 /100WBC Nucleated RBCs # 0 K/uL Sodium 130 L (136-145) mmol/L Potassium 3.7 (3.5-5.1) mmol/L Chloride 94 L (98-107) mmol/L Carbon Dioxide 23.3 (21.0-32.0) mmol/L BUN 20 H (7.0-18.0) mg/dL Creatinine 1.2 H (0.6-1.0) mg/dL Est Cr Clr Drug Dosing 35.05 mL/min Estimated GFR (MDRD) 44.2 ml/min Glucose 117 H (74-106) mg/dL Calcium 9.3 (8.5-10.1) mg/dL Urine Color YELLOW Urine Appearance CLEAR Urine pH 5.5 (5.0-8.0) Ur Specific [place] 1.020 (1.001-1.035) Urine Protein NEGATIVE (NEGATIVE) mg/dL Urine Glucose (UA) NEGATIVE (NEGATIVE) mg/dL Urine Ketones NEGATIVE (NEGATIVE) mg/dL Urine Occult Blood NEGATIVE (NEGATIVE) Urine Nitrite NEGATIVE (NEGATIVE) Urine Bilirubin NEGATIVE (NEGATIVE) Urine Urobilinogen 0.2 (<2.0) EU/dL Ur Leukocyte Esterase NEGATIVE (NEGATIVE) Meds: Medications Generic Name Dose Route Start Last Admin Trade Name Freq PRN Reason Stop Dose Admin Sodium Chloride 500 mls @ 999 mls/hr 10/31/19 08:45 10/31/19 09:17 Normal Saline IV 999 mls/hr STAT MELANY Administration Sodium Chloride 1,000 mls @ 125 mls/hr 10/31/19 08:45 10/31/19 09:13 Normal Saline IV 125 mls/hr STAT MELANY Administration Discontinued Medications Generic Name Dose Route Start Last Admin Trade Name Freq PRN Reason Stop Dose Admin Ceftriaxone Sodium/Dextrose 1 50 mls @ 100 mls/hr 10/31/19 08:38 10/31/19 09: 13 gm/ Premix IV 10/31/19 09:07 100 mls/hr ONETIME ONE Administration Ondansetron HCl 4 mg 10/31/19 08:31 10/31/19 09:13 Zofran IVPUSH 10/31/19 08:32 4 mg ONETIME ONE Administration Departure - Departure Time of Disposition: 10:42 Disposition: Refer to Observation Condition: Fair Clinical Impression: Dehydration, Intractable nausea and vomiting - Discharge Information Referrals: Gavin Doan MD [Primary Care Provider] - Forms: ED Department Discharge Sepsis Event Note - Focused Exam Vital Signs: Vital Signs Temp Pulse Resp BP Pulse Ox 10/31/19 08:33 96.1 F 61 16 160/64 H 99 Date Exam was Performed: 10/31/19 Time Exam was Performed: 10:41 - My Orders Last 24 Hours: My Active Orders 10/31/19 08:45 Sodium Chloride 0.9% [Normal Saline] 1,000 ml IV STAT Sodium Chloride 0.9% [Normal Saline] 500 ml IV STAT - Assessment/Plan Last 24 Hours: My Active Orders 10/31/19 08:45 Sodium Chloride 0.9% [Normal Saline] 1,000 ml IV STAT Sodium Chloride 0.9% [Normal Saline] 500 ml IV STAT
[2019-10-31] MEDS ORDERED: cefTRIAXone 1 GM in Premix Bag 1 BAG IV ONE (08:38)
[2019-10-31] MEDS ORDERED: Sodium Chloride 0.9% 500 ML IV SCH (08:45)
[2019-10-31] MEDS ORDERED: Sodium Chloride 0.9% 1,000 ML IV SCH (08:45)
--- NOTE | 2019-10-31 09:16 | CR ---
Abdomen: Supine and upright views of the abdomen were obtained. Comparison: No previous study. Bowel gas pattern is normal. No free air is seen. Vascular calcification is seen. Calcifications are identified within the pelvis compatible phleboliths. Bony structures are osteopenic. Surgical clips are noted at the gastroesophageal junction. Impression: 1. Findings as noted above. 2. Nothing acute is seen on 2 view abdominal x-ray. Diagnostic code #2 This report was dictated in [place] Standard Time
[2019-10-31 09:27] LABS: CARBON DIOXIDE,CO2 23.3 mmol/L (21.0-32.0); POTASSIUM,K 3.7 mmol/L (3.5-5.1)
--- NOTE | 2019-10-31 12:19 | PCM.HP.2 ---
H&P History of Present Illness - General Date of Service: 10/31/19 Admit Problem/Dx: Admission Diagnosis/Problem Admission Diagnosis/Problem Dehydration Source of Information: Patient History Limitations: Reports: No Limitations - History of Present Illness Initial Comments - Free Text/Narative: This 74 year old female with pmh HTN, dyslipidemia, DM type 2, anxiety and chronic pain presented to the ED today with complaints of nausea and vomiting with the inability to keep fluids down. She reports she was sick 2 weeks ago with bronchitis and then was seen in the ED three days ago, given IVF and antibiotic for UTI. She reports she has been unable to keep fluids down and last time vomiting was last night. She s very uncooperative with history telling me she doesn't want to do this right now and everything is in her chart. She denies fevers or chills. No chest pain or SOB. denies abdominal pain or diarrhea. She denies urinary symptoms. Reports significant back pain which is her normal, reports nothing has changed, but really wants to get to her room so she can lay down on a better bed, the ED cot was worsening her pain. She denies alcohol or tobacco use and no recreational drug use. In the ED no leukocytosis noted, Hgb 12.4, platelet 405. Na 130, K+ 3.7, Cl 94, BUN 20 and Cr 1.2, which is slightly elevated from baseline. Abd xray obtained no acute changes, no stone. UC from previous ED visit Mixed Manjula >100,000 colonies. She was treated with Cipro outpatient. She was given IVFs and Rocephin in the ED. BP stable, no hypotension. HR 61. She will be admitted for intractable N/V and dehydration. PCP, Dr Doan - Related Data Allergies/Adverse Reactions: Allergies Allergy/AdvReac Type Severity Reaction Status Date / Time No Known Allergies Allergy Verified 10/31/19 08:33 Home Medications: Home Meds Cyanocobalamin (Vitamin B12) [Vitamin B12] 1,000 mcg PO DAILY 10/03/17 [History] amLODIPine [Norvasc] 1 tab DAILY 06/22/19 [History] atorvaSTATin [Lipitor] 40 mg PO BEDTIME 06/22/19 [History] Benazepril/Hydrochlorothiazide [Benazepril-Hctz 20-12.5 mg Tab] 1 each PO DAILY 10/28/19 [History] Pioglitazone HCl/Metformin HCl [Pioglitazone-Metformin 47-409] 1 each PO BID [History] Past Medical History HEENT History: Reports: Glaucoma Cardiovascular History: Reports: High Cholesterol, Hypertension Respiratory History: Reports: Asthma Gastrointestinal History: Reports: [employer] History: Reports: Other Musculoskeletal History: chronic pain Psychiatric History: Reports: Anxiety Endocrine/Metabolic History: Reports: Diabetes, Type II - Infectious Disease History Infectious Disease History: Reports: Chicken Pox, Measles - Past Surgical History GI Surgical History: Reports: Appendectomy, Other (See Below) Other GI Surgeries/Procedures: ulcer surgery Social & Family History - Family History Family Medical History: Noncontributory - Tobacco Use Smoking Status *Q: Never Smoker Second Hand Smoke Exposure: No - Caffeine Use Caffeine Use: Reports: Soda - Alcohol Use Alcohol Use History: No - Recreational Drug Use Recreational Drug Use: No - Living Situation & Occupation Living situation: Reports: H&P Review of Systems - Review of Systems: Review Of Systems: See Below General: Reports: Malaise. Denies: Fever, Chills HEENT: Reports: No Symptoms. Denies: Headaches, Sinus Congestion, Sore Throat Pulmonary: Reports: No Symptoms. Denies: Shortness of Breath Cardiovascular: Reports: No Symptoms. Denies: Chest Pain Gastrointestinal: Reports: No Symptoms. Denies: Abdominal Pain, Black Stool, Bloody Stool Musculoskeletal: Reports: Back Pain (reports this is chronic and exacerbated by the ED bed. denies it is any different that her normal chronic pain) Skin: Reports: No Symptoms Psychiatric: Reports: Anxiety Neurological: Reports: No Symptoms Hematologic/Lymphatic: Reports: No Symptoms Immunologic: Reports: No Symptoms Exam - Exam Exam: See Below - Vital Signs Vital Signs: Last Vital Signs Temp 96.1 F 10/31/19 08:33 Pulse 61 10/31/19 08:33 Resp 16 10/31/19 08:33 BP 160/64 H 10/31/19 08:33 Pulse Ox 99 10/31/19 08:33 Weight: 72.575 kg - Exam Quality Assessment: No: Supplemental Oxygen General: Alert, Oriented. No: Cooperative (not willing to provide elaborate history or allow full physical exam. Reports she has been waiting too long for her bed and doesn't have time for me.) HEENT: Conjunctiva Clear, Posterior Pharynx Clear. No: Mucosa Moist & Brent (dry ) Neck: Supple, Trachea Midline Lungs: Clear to Auscultation, Normal Respiratory Effort Cardiovascular: Regular Rate, Regular Rhythm GI/Abdominal Exam: Normal Bowel Sounds, Soft, Non-Tender Back Exam: CVA Tenderness (R) (continues ) Extremities: Normal Inspection, Normal Range of Motion, Non-Tender, No Pedal Edema Skin: Warm, Dry, Intact Neuro Extensive - Mental Status: Alert, Oriented x3 Neuro Extensive - Motor, Sensory, Reflexes: CN II-XII Intact, Normal Gait Psychiatric: Anxious - Patient Data Lab Results Last 24 hrs: Laboratory Results - last 24 hr 10/31/19 10/31/19 10/31/19 Range/Units 08:40 08:40 09:21 WBC 8.99 (4.0-11.0) K/uL RBC 4.35 (4.30-5.90) M/uL Hgb 12.4 (12.0-16.0) g/dL Hct 36.5 (36.0-46.0) % MCV 83.9 (80.0-98.0) fL MCH 28.5 (27.0-32.0) pg MCHC 34.0 (31.0-37.0) g/dL RDW Std Deviation 43.6 (28.0-62.0) fl RDW Coeff of Saran 14 (11.0-15.0) % Plt Count 405 H (150-400) K/uL MPV 9.10 (7.40-12.00) fL Neut % (Auto) 73.1 (48.0-80.0) % Lymph % (Auto) 16.4 (16.0-40.0) % [place] % (Auto) 9.2 (0.0-15.0) % Eos % (Auto) 1.2 (0.0-7.0) % Baso % (Auto) 0.1 (0.0-1.5) % Neut # (Auto) 6.6 H (1.4-5.7) K/uL Lymph # (Auto) 1.5 (0.6-2.4) K/uL [place] # (Auto) 0.8 (0.0-0.8) K/uL Eos # (Auto) 0.1 (0.0-0.7) K/uL Baso # (Auto) 0.0 (0.0-0.1) K/uL Nucleated RBC % 0.0 /100WBC Nucleated RBCs # 0 K/uL Sodium 130 L (136-145) mmol/L Potassium 3.7 (3.5-5.1) mmol/L Chloride 94 L (98-107) mmol/L Carbon Dioxide 23.3 (21.0-32.0) mmol/L BUN 20 H (7.0-18.0) mg/dL Creatinine 1.2 H (0.6-1.0) mg/dL Est Cr Clr Drug Dosing 35.05 mL/min Estimated GFR (MDRD) 44.2 ml/min Glucose 117 H (74-106) mg/dL Calcium 9.3 (8.5-10.1) mg/dL Urine Color YELLOW Urine Appearance CLEAR Urine pH 5.5 (5.0-8.0) Ur Specific [place] 1.020 (1.001-1.035) Urine Protein NEGATIVE (NEGATIVE) mg/dL Urine Glucose (UA) NEGATIVE (NEGATIVE) mg/dL Urine Ketones NEGATIVE (NEGATIVE) mg/dL Urine Occult Blood NEGATIVE (NEGATIVE) Urine Nitrite NEGATIVE (NEGATIVE) Urine Bilirubin NEGATIVE (NEGATIVE) Urine Urobilinogen 0.2 (<2.0) EU/dL Ur Leukocyte Esterase NEGATIVE (NEGATIVE) Result Diagrams: 10/31/19 08:40 10/31/19 08:40 Sepsis Event Note - Evaluation Sepsis Screening Result: No Definite Risk - Focused Exam Vital Signs: Vital Signs Temp Pulse Resp BP Pulse Ox 10/31/19 08:33 96.1 F 61 16 160/64 H 99 Date Exam was Performed: 10/31/19 Time Exam was Performed: 12:12 - Problem List (1) Dehydration SNOMED Code(s): 35037072 ICD Code: E86.0 - DEHYDRATION Status: Acute Current Visit: Yes (2) Intractable nausea and vomiting SNOMED Code(s): 611154197 ICD Code: R11.2 - NAUSEA WITH VOMITING, UNSPECIFIED Status: Acute Current Visit: Yes Problem List Initiated/Reviewed/Updated: Yes Orders Last 24hrs: Active Orders 24 hr Category Date Time Status Admission Status [Patient Status] [ADT] Stat ADT 10/31/19 10:43 Active Intake and Output [RC] Q12H Care 10/31/19 11:29 Active Oxygen Therapy [RC] PRN Care 10/31/19 11:29 Active Up With Assistance [RC] ASDIRECTED Care 10/31/19 11:29 Active VTE/DVT Education [RC] PER UNIT ROUTINE Care 10/31/19 11:29 Active Vital Signs [RC] Q4H Care 10/31/19 11:29 Active Clear Liquid Diet [DIET] Diet 10/31/19 Lunch Active BASIC METABOLIC PANEL,BMP [CHEM] AM Lab 11/01/19 05:11 Ordered BASIC METABOLIC PANEL,BMP [CHEM] AM Lab 11/02/19 05:11 Ordered CBC WITH AUTO DIFF [HEME] AM Lab 11/01/19 05:11 Ordered CBC WITH AUTO DIFF [HEME] AM Lab 11/02/19 05:11 Ordered Ondansetron [Zofran] Med 10/31/19 11:29 Active 4 mg IVPUSH Q4H PRN Sodium Chloride 0.9% [Normal Saline] 1,000 ml Med 10/31/19 08:45 Active IV STAT Resuscitation Status Routine Resus Stat 10/31/19 11:29 Ordered Medication Orders Sodium Chloride (Normal Saline) 1,000 mls @ 125 mls/hr IV STAT MELANY Last Admin: 10/31/19 09:13 Dose: 125 mls/hr Ondansetron HCl (Zofran) 4 mg IVPUSH Q4H PRN PRN Reason: Nausea Assessment/Plan Comment:: This 74 year old female admitted with intractable nausea and vomiting and dehydration 1. N/V, dehydration: Continue IVFs, CL diet for now, re-evaluate for tolerance later this afternoon. Zofran and Compazine PRN for pain. 2. Back pain: Offered CT to rule out pyelonephritis due to R CVA tenderness patient very irritated and declined this. Will continue Rocephin. Patient feels back pain is at baseline. 3. Dm Type 2: Hold PO meds due to nausea. Check BS TIDAC and Novolog SSI 4. HTN: Stable, will monitor with dehydration. Continue home meds. 5. Anxiety: Continue Home meds as well. VTE prophylaxis: SCDs and ambulationg Dispo: 1day - Mortality Measure Prognosis:: Good
[2019-10-31] MEDS ORDERED: Prochlorperazine 10 MG/2 ML SDV IVPUSH PRN (12:36)
[2019-10-31] MEDS ORDERED: Morphine 2 MG/ML Syringe IVPUSH PRN (12:39)
[2019-10-31] MEDS: Sodium Chloride 0.9% 1,000 ML IV SCH ×2 (12:53→18:28)
[2019-10-31] MEDS: Ondansetron 4 MG/2 ML SDV IVPUSH PRN (16:10)
[2019-10-31] MEDS: Insulin Aspart 100 Units/ML 3 ML Pen SUBCUT SCH (17:08)
[2019-10-31] MEDS ORDERED: atorvaSTATin 40 MG Tab PO SCH (21:00)
[2019-11-01] MEDS: Sodium Chloride 0.9% 1,000 ML IV SCH (02:32)
[2019-11-01] MEDS: Ondansetron 4 MG/2 ML SDV IVPUSH PRN (03:45)
[2019-11-01 06:25] LABS: BLOOD UREA NITROGEN,BUN 11 mg/dL (7.0-18.0); CARBON DIOXIDE,CO2 25.1 mmol/L (21.0-32.0); CHLORIDE,CL 101 mmol/L (98-107); GLUCOSE RANDOM 126 mg/dL (74-106); POTASSIUM,K 3.7 mmol/L (3.5-5.1); SODIUM,NA 137 mmol/L (136-145)
[2019-11-01] MEDS: Insulin Aspart 100 Units/ML 3 ML Pen SUBCUT SCH (07:40)
[2019-11-01] MEDS ORDERED: ALPRAZolam 0.25 MG Tab PO PRN (08:17)
[2019-11-01] MEDS ORDERED: PROMETHAZINE PO SCH (08:30)
[2019-11-01] MEDS ORDERED: DEXTROMETHORPHAN PO SCH (08:30)
[2019-11-01] MEDS ORDERED: [UNRECOGNIZED DRUG - OTHER] PO SCH (08:30)
[2019-11-01] MEDS ORDERED: amLODIPine 5 MG Tab PO SCH (09:00)
[2019-11-01] MEDS ORDERED: amLODIPine 2.5 MG Tab PO SCH (09:00)
[2019-11-01] MEDS ORDERED: Hydrochlorothiazide 25 MG Tab PO SCH (09:00)
[2019-11-01] MEDS ORDERED: Non-Formulary Medication 1 Each (Benazepril/Hydrochlorothiazide [Lotensin Hct 20-25 Mg Tab PO SCH (09:00)
[2019-11-01] MEDS ORDERED: Benazepril 10 MG Tab PO SCH (09:00)
--- NOTE | 2019-11-01 09:13 | PCM.DCSUM1 ---
Discharge Summary - Hospital Course Brief History: This 74 year old female with pmh HTN, dyslipidemia, DM type 2, anxiety and chronic pain presented to the ED today with complaints of nausea and vomiting with the inability to keep fluids down. She reports she was sick 2 weeks ago with bronchitis and then was seen in the ED three days ago, given IVF and antibiotic for UTI. She reports she has been unable to keep fluids down and last time vomiting was last night. She s very uncooperative with history telling me she doesn't want to do this right now and everything is in her chart. She denies fevers or chills. No chest pain or SOB. denies abdominal pain or diarrhea. She denies urinary symptoms. Reports significant back pain which is her normal, reports nothing has changed, but really wants to get to her room so she can lay down on a better bed, the ED cot was worsening her pain. She denies alcohol or tobacco use and no recreational drug use. In the ED no leukocytosis noted, Hgb 12.4, platelet 405. Na 130, K+ 3.7, Cl 94, BUN 20 and Cr 1.2, which is slightly elevated from baseline. Abd xray obtained no acute changes, no stone. UC from previous ED visit Mixed Manjula >100,000 colonies. She was treated with Cipro outpatient. She was given IVFs and Rocephin in the ED. BP stable, no hypotension. HR 61. She will be admitted for intractable N/V and dehydration. PCP, Dr Doan Diagnosis: Stroke: No - Discharge Data Discharge Date: 11/01/19 Discharge Disposition: Home, Self-Care 01 Condition: Good - Referral to Home Health Primary Care Physician: Gavin Doan MD - Discharge Diagnosis/Problem(s) (1) Dehydration SNOMED Code(s): 80373429 ICD Code: E86.0 - DEHYDRATION Status: Acute (2) Intractable nausea and vomiting SNOMED Code(s): 625562170 ICD Code: R11.2 - NAUSEA WITH VOMITING, UNSPECIFIED Status: Acute - Patient Instructions Diet: Regular Diet as Tolerated Activity: As Tolerated, No Strenuous Activities Showering/Bathing: May Shower Notify Provider of: Fever, Increased Pain, Swelling and Redness, Drainage, Nausea and/or Vomiting Other/Special Instructions: Continue taking Cipro as provided from ER. - Discharge Plan *PRESCRIPTION DRUG MONITORING PROGRAM REVIEWED*: Not Applicable *COPY OF PRESCRIPTION DRUG MONITORING REPORT IN PATIENT GABRIEL: Not Applicable Prescriptions/Med Rec: Ondansetron [Zofran ODT] 4 mg PO Q6H PRN #15 tab.dis PRN Reason: Nausea Home Medications: Home Meds atorvaSTATin [Lipitor] 40 mg PO BEDTIME 06/22/19 [History] Pioglitazone HCl/Metformin HCl [Pioglitazone-Metformin 15-850] 1 each PO BID [History] ALPRAZolam [Alprazolam] 0.5 mg PO BID PRN 10/31/19 [History] Benazepril/Hydrochlorothiazide [Lotensin Hct 20-25 mg Tablet] 1 tab PO DAILY [History] Ibuprofen 800 mg PO TID 10/31/19 [History] Latanoprost 1 drop EYEBOTH ASDIRECTED 10/31/19 [History] Promethazine/Dextromethorphan [Promethazine-Dm Solution] 5 ml PO ASDIRECTED [History] Sucralfate 1 gm PO QID 10/31/19 [History] amLODIPine [Norvasc] 5 mg PO DAILY 10/31/19 [History] Ondansetron [Zofran ODT] 4 mg PO Q6H PRN #15 tab.dis 11/01/19 [Rx] Oxygen Therapy Mode: Room Air Patient Handouts: Ondansetron tablets, Dehydration, Adult, [id number] Referrals: [facility] [Outside] Homero Centeno MD [Ordering Only Provider] - 11/08/19 1:00 pm (The appointment was not able to be made with Dr. Doan due to no openings. Arrive 15 minutes early with photo ID and insurance card. ) - Discharge Summary/Plan Comment DC Time >30 min.: No Discharge Summary/Plan Comment: Admitting Diagnoses: N/V Dehydration Discharge Diagnoses: N/V-resolved Dehydration-resolved Rosa Elena was admitted for dehydration N/V. SHe was hydrated with IVFs overnight, kept on CL diet. This morning she is doing much better and is requesting discharge home. NO further N/V and tolerating diet well. She requested a few tabs of Zofran PRN for nausea. This was provided. She is to follow up with PCP in 1 week and to continue Cipro given in ED a few days prior. She is to return to ED or clinic if concerns should arise. - Patient Data Vitals - Most Recent: Last Vital Signs Temp 96.9 F 11/01/19 07:35 Pulse 64 11/01/19 07:45 Resp 18 11/01/19 07:45 BP 158/68 H 11/01/19 08:53 Pulse Ox 97 11/01/19 07:45 Weight - Most Recent: 72.575 kg I&O - Last 24 hours: Intake & Output 10/31/19 11/01/19 11/01/19 22:59 06:59 14:59 Intake Total 795 2037 Output Total 200 1600 Balance 595 437 Lab Results - Last 24 hrs: Laboratory Results - last 24 hr 10/31/19 10/31/19 10/31/19 Range/Units 08:40 08:40 09:21 WBC 8.99 (4.0-11.0) K/uL RBC 4.35 (4.30-5.90) M/uL Hgb 12.4 (12.0-16.0) g/dL Hct 36.5 (36.0-46.0) % MCV 83.9 (80.0-98.0) fL MCH 28.5 (27.0-32.0) pg MCHC 34.0 (31.0-37.0) g/dL RDW Std Deviation 43.6 (28.0-62.0) fl RDW Coeff of Saran 14 (11.0-15.0) % Plt Count 405 H (150-400) K/uL MPV 9.10 (7.40-12.00) fL Neut % (Auto) 73.1 (48.0-80.0) % Lymph % (Auto) 16.4 (16.0-40.0) % [place] % (Auto) 9.2 (0.0-15.0) % Eos % (Auto) 1.2 (0.0-7.0) % Baso % (Auto) 0.1 (0.0-1.5) % Neut # (Auto) 6.6 H (1.4-5.7) K/uL Lymph # (Auto) 1.5 (0.6-2.4) K/uL [place] # (Auto) 0.8 (0.0-0.8) K/uL Eos # (Auto) 0.1 (0.0-0.7) K/uL Baso # (Auto) 0.0 (0.0-0.1) K/uL Nucleated RBC % 0.0 /100WBC Nucleated RBCs # 0 K/uL Sodium 130 L (136-145) mmol/L Potassium 3.7 (3.5-5.1) mmol/L Chloride 94 L (98-107) mmol/L Carbon Dioxide 23.3 (21.0-32.0) mmol/L BUN 20 H (7.0-18.0) mg/dL Creatinine 1.2 H (0.6-1.0) mg/dL Est Cr Clr Drug Dosing 35.05 mL/min Estimated GFR (MDRD) 44.2 ml/min Glucose 117 H (74-106) mg/dL POC Glucose (60-110) mg/dL Calcium 9.3 (8.5-10.1) mg/dL Urine Color YELLOW Urine Appearance CLEAR Urine pH 5.5 (5.0-8.0) Ur Specific [place] 1.020 (1.001-1.035) Urine Protein NEGATIVE (NEGATIVE) mg/dL Urine Glucose (UA) NEGATIVE (NEGATIVE) mg/dL Urine Ketones NEGATIVE (NEGATIVE) mg/dL Urine Occult Blood NEGATIVE (NEGATIVE) Urine Nitrite NEGATIVE (NEGATIVE) Urine Bilirubin NEGATIVE (NEGATIVE) Urine Urobilinogen 0.2 (<2.0) EU/dL Ur Leukocyte Esterase NEGATIVE (NEGATIVE) 10/31/19 10/31/19 11/01/19 Range/Units 12:58 17:07 06:00 WBC 7.11 (4.0-11.0) K/uL RBC 3.75 L (4.30-5.90) M/uL Hgb 10.6 L (12.0-16.0) g/dL Hct 32.1 L (36.0-46.0) % MCV 85.6 (80.0-98.0) fL MCH 28.3 (27.0-32.0) pg MCHC 33.0 (31.0-37.0) g/dL RDW Std Deviation 43.9 (28.0-62.0) fl RDW Coeff of Saran 14 (11.0-15.0) % Plt Count 387 (150-400) K/uL MPV 9.30 (7.40-12.00) fL Neut % (Auto) 66.7 (48.0-80.0) % Lymph % (Auto) 22.5 (16.0-40.0) % [place] % (Auto) 8.7 (0.0-15.0) % Eos % (Auto) 2.0 (0.0-7.0) % Baso % (Auto) 0.1 (0.0-1.5) % Neut # (Auto) 4.7 (1.4-5.7) K/uL Lymph # (Auto) 1.6 (0.6-2.4) K/uL [place] # (Auto) 0.6 (0.0-0.8) K/uL Eos # (Auto) 0.1 (0.0-0.7) K/uL Baso # (Auto) 0.0 (0.0-0.1) K/uL Nucleated RBC % 0.0 /100WBC Nucleated RBCs # 0 K/uL Sodium (136-145) mmol/L Potassium (3.5-5.1) mmol/L Chloride (98-107) mmol/L Carbon Dioxide (21.0-32.0) mmol/L BUN (7.0-18.0) mg/dL Creatinine (0.6-1.0) mg/dL Est Cr Clr Drug Dosing mL/min Estimated GFR (MDRD) ml/min Glucose (74-106) mg/dL POC Glucose 84 108 (60-110) mg/dL Calcium (8.5-10.1) mg/dL Urine Color Urine Appearance Urine pH (5.0-8.0) Ur Specific [place] (1.001-1.035) Urine Protein (NEGATIVE) mg/dL Urine Glucose (UA) (NEGATIVE) mg/dL Urine Ketones (NEGATIVE) mg/dL Urine Occult Blood (NEGATIVE) Urine Nitrite (NEGATIVE) Urine Bilirubin (NEGATIVE) Urine Urobilinogen (<2.0) EU/dL Ur Leukocyte Esterase (NEGATIVE) 11/01/19 11/01/19 Range/Units 06:00 06:01 WBC (4.0-11.0) K/uL RBC (4.30-5.90) M/uL Hgb (12.0-16.0) g/dL Hct (36.0-46.0) % MCV (80.0-98.0) fL MCH (27.0-32.0) pg MCHC (31.0-37.0) g/dL RDW Std Deviation (28.0-62.0) fl RDW Coeff of [place] (11.0-15.0) % Plt Count (150-400) K/uL MPV (7.40-12.00) fL Neut % (Auto) (48.0-80.0) % Lymph % (Auto) (16.0-40.0) % [place] % (Auto) (0.0-15.0) % Eos % (Auto) (0.0-7.0) % Baso % (Auto) (0.0-1.5) % Neut # (Auto) (1.4-5.7) K/uL Lymph # (Auto) (0.6-2.4) K/uL [place] # (Auto) (0.0-0.8) K/uL Eos # (Auto) (0.0-0.7) K/uL Baso # (Auto) (0.0-0.1) K/uL Nucleated RBC % /100WBC Nucleated RBCs # K/uL Sodium 137 (136-145) mmol/L Potassium 3.7 (3.5-5.1) mmol/L Chloride 101 (98-107) mmol/L Carbon Dioxide 25.1 (21.0-32.0) mmol/L BUN 11 (7.0-18.0) mg/dL Creatinine 0.9 (0.6-1.0) mg/dL Est Cr Clr Drug Dosing 50.84 mL/min Estimated GFR (MDRD) > 60.0 ml/min Glucose 126 H (74-106) mg/dL POC Glucose 114 H (60-110) mg/dL Calcium 8.7 (8.5-10.1) mg/dL Urine Color Urine Appearance Urine pH (5.0-8.0) Ur Specific [place] (1.001-1.035) Urine Protein (NEGATIVE) mg/dL Urine Glucose (UA) (NEGATIVE) mg/dL Urine Ketones (NEGATIVE) mg/dL Urine Occult Blood (NEGATIVE) Urine Nitrite (NEGATIVE) Urine Bilirubin (NEGATIVE) Urine Urobilinogen (<2.0) EU/dL Ur Leukocyte Esterase (NEGATIVE) Med Orders - Current: Current Medications Alprazolam (Xanax) 0.5 mg PO BID PRN PRN Reason: Anxiety Amlodipine Besylate (Norvasc) 2.5 mg PO DAILY [facility] Last Admin: 11/01/19 08:53 Dose: 2.5 mg Amlodipine Besylate (Norvasc) 5 mg PO DAILY [facility] Last Admin: 11/01/19 08:46 Dose: 5 mg Atorvastatin Calcium (Lipitor) 40 mg PO BEDTIME [facility] Last Admin: 10/31/19 21:08 Dose: 40 mg Benazepril HCl (Lotensin) 20 mg PO DAILY [facility] Last Admin: 11/01/19 08:45 Dose: 20 mg Hydrochlorothiazide (Hydrochlorothiazide) 25 mg PO DAILY [facility] Last Admin: 11/01/19 08:45 Dose: 25 mg Sodium Chloride (Normal Saline) 1,000 mls @ 125 mls/hr IV Q8H [facility] Last Admin: 11/01/19 02:32 Dose: 125 mls/hr Ceftriaxone Sodium/Dextrose 1 (gm/ Premix) 50 mls @ 100 mls/hr IV Q24H [facility] Insulin Aspart (Novolog) 0 unit SUBCUT TIDAC [facility]; Protocol Last Admin: 11/01/19 07:40 Dose: Not Given Morphine Sulfate (Morphine) 2 mg IVPUSH Q4H PRN PRN Reason: Pain Ondansetron HCl (Zofran) 4 mg IVPUSH Q4H PRN PRN Reason: Nausea Last Admin: 11/01/19 03:45 Dose: 4 mg Non-Formulary Medication 1 Each ( Promethazine/Dextromethorphan [ Promethazine- Dm Solution] 0 each PO ASDIRECTED [facility] Prochlorperazine Edisylate (Compazine) 5 mg IVPUSH Q6H PRN PRN Reason: Nausea/Vomiting Sucralfate (Carafate) 1 gm PO QID [facility] Discontinued Medications Sodium Chloride (Normal Saline) 500 mls @ 999 mls/hr IV STAT [facility] Last Admin: 10/31/19 09:17 Dose: 999 mls/hr Ceftriaxone Sodium/Dextrose 1 (gm/ Premix) 50 mls @ 100 mls/hr IV ONETIME ONE Stop: 10/31/19 09:07 Last Admin: 10/31/19 09:13 Dose: 100 mls/hr Sodium Chloride (Normal Saline) 1,000 mls @ 125 mls/hr IV STAT [facility]ANY Last Admin: 10/31/19 09:13 Dose: 125 mls/hr Non-Formulary Medication (Benazepril/Hydrochlorothiazide [Lotensin Hct 20-25 Mg Tablet]) 1 tab PO DAILY [facility] Ondansetron HCl (Zofran) 4 mg IVPUSH ONETIME ONE Stop: 10/31/19 08:32 Last Admin: 10/31/19 09:13 Dose: 4 mg
[2019-11-01] MEDS ORDERED: Sucralfate 1 GM Tab PO SCH (12:00)
[2019-11-01] MEDS ORDERED: cefTRIAXone 1 GM in Premix Bag 1 BAG IV SCH (12:00)
== END 2019-11-01 09:40 | disposition home or self-care (01) ==
LOC: MW.ED 08:18 → MW.MS 11:08
PROVIDERS: ADMIT Student in an Organized Health Care Education/Training Program; ATTEND Student in an Organized Health Care Education/Training Program
DX: E86.0 Dehydration (principal); R11.2 Nausea with vomiting, unspecified; I10 Essential (primary) hypertension; E78.5 Hyperlipidemia, unspecified; E11.9 Type 2 diabetes mellitus without complications; F41.9 Anxiety disorder, unspecified; G89.29 Other chronic pain; M54.9 Dorsalgia, unspecified; E78.00 Pure hypercholesterolemia, unspecified; J45.909 Unspecified asthma, uncomplicated; Z79.84 Long term (current) use of oral hypoglycemic drugs; Z79.899 Other long term (current) drug therapy
CPT/HCPCS: 36415; 74019; 80048; 81003; 82962; 85025; A9270; J0696; J2405; J7030; J7040

== ENCOUNTER 2021-03-02 14:49 | Emergency (ER) | payer MEDICARE, BC ==
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
[2021-03-02] MEDS ORDERED: Sodium Chloride 0.9% 10 ML Syringe FLUSH PRN (14:59)
[2021-03-02] MEDS ORDERED: Sodium Chloride 0.9% 2.5 ML Syringe FLUSH PRN (14:59)
[2021-03-02] MEDS ORDERED: Morphine 4 MG/ML Syringe IVPUSH ONE (15:20)
[2021-03-02] MEDS ORDERED: Bacitracin Oint 28.35 GM Tube TOP ONE (15:38)
[2021-03-02] MEDS ORDERED: Lidocaine 5% Oint 35.44 GM Tube TOP ONE ×2 (15:39→16:33)
--- NOTE | 2021-03-02 15:39 | CR ---
INDICATION: Crush injury. Swelling. TECHNIQUE: Two views right tibia and fibula and three views right knee COMPARISON: None FINDINGS AND IMPRESSION: No acute fracture. No dislocation. No suspicious bone lesion. Well corticated density adjacent to the lateral femoral condyle appears chronic. Posterior calcaneal enthesophyte noted. There is generalized subcutaneous edema/soft tissue swelling about the knee and the proximal to mid calf. Dictated by Brad Rojo MD @ 03/02/2021 3:37:[address] Brad Rojo @ Mar 02 2021 3:37PM
--- NOTE | 2021-03-02 15:39 | CR ---
INDICATION: Crush injury. Swelling. TECHNIQUE: Two views right tibia and fibula and three views right knee COMPARISON: None FINDINGS AND IMPRESSION: No acute fracture. No dislocation. No suspicious bone lesion. Well corticated density adjacent to the lateral femoral condyle appears chronic. Posterior calcaneal enthesophyte noted. There is generalized subcutaneous edema/soft tissue swelling about the knee and the proximal to mid calf. Dictated by Brad Rojo MD @ 03/02/2021 3:37:[address] Brad Rojo @ Mar 02 2021 3:37PM
[2021-03-02 15:47] LABS: BLOOD UREA NITROGEN,BUN 17 mg/dL (7.0-18.0); CARBON DIOXIDE,CO2 25.9 mmol/L (21.0-32.0); CHLORIDE,CL 100 mmol/L (98-107); GLUCOSE RANDOM 168 mg/dL (74-106); POTASSIUM,K 3.8 mmol/L (3.5-5.1); SODIUM,NA 136 mmol/L (136-145)
[2021-03-02] MEDS ORDERED: Lidocaine 2% Jelly 30 ML Tube MUCMEM STA ×2 (16:14→16:45)
== END 2021-03-02 17:00 | disposition home or self-care (01) ==
LOC: MW.ED 14:49
DX: S87.81XA Crushing injury of right lower leg, initial encounter (principal); S80.811A Abrasion, right lower leg, initial encounter; I10 Essential (primary) hypertension; E78.00 Pure hypercholesterolemia, unspecified; E11.9 Type 2 diabetes mellitus without complications; Z79.899 Other long term (current) drug therapy; W22.8XXA Striking against or struck by other objects, initial encounter
CPT/HCPCS: 36415; 73562; 73590; 80053; 82550; 83605; 85025; 96374; 99284; A9270; J2270; 99283

== ENCOUNTER 2022-09-15 08:37 | Emergency (ER) | payer MEDICARE, BC | END 2022-09-15 09:43 | disposition home or self-care (01) | LOC: MW.ED 08:37 | DX: S20.212A Contusion of left front wall of thorax, initial encounter (principal); E78.00 Pure hypercholesterolemia, unspecified; I10 Essential (primary) hypertension; E11.9 Type 2 diabetes mellitus without complications; J45.909 Unspecified asthma, uncomplicated; Z79.899 Other long term (current) drug therapy; W18.30XA Fall on same level, unspecified, initial encounter; Y92.002 Bathroom of unspecified non-institutional (private) residence as the place of occurrence of the external cause | CPT/HCPCS: 99284 ==

== ENCOUNTER 2022-10-02 14:15 | Emergency (ER) | payer MEDICARE, BC ==
[2022-10-02] MEDS ORDERED: Sodium Chloride 0.9% 10 ML Syringe FLUSH PRN (15:23)
[2022-10-02] MEDS ORDERED: Ketorolac 30 MG/ML SDV IVPUSH ONE (15:23)
[2022-10-02] MEDS ORDERED: Sodium Chloride 0.9% 2.5 ML Syringe FLUSH PRN (15:23)
[2022-10-02] MEDS ORDERED: Bacitracin Oint 1 GM U/D Packet TOP ONE (15:26)
== END 2022-10-02 16:15 | disposition home or self-care (01) ==
LOC: MW.ED 14:15
DX: T23.231A Burn of second degree of multiple right fingers (nail), not including thumb, initial encounter (principal); E78.00 Pure hypercholesterolemia, unspecified; I10 Essential (primary) hypertension; E11.9 Type 2 diabetes mellitus without complications; Z79.899 Other long term (current) drug therapy; X15.8XXA Contact with other hot household appliances, initial encounter
CPT/HCPCS: 96374; 99283; J1885

== ENCOUNTER 2023-05-03 07:10 | Emergency (ER) | payer MEDICARE, BC ==
[2023-05-03] MEDS ORDERED: Ketorolac 30 MG/ML SDV IM ONE (07:34)
[2023-05-03] MEDS ORDERED: Dexamethasone 10 MG/ML SDV IM STA (07:34)
[2023-05-03] MEDS ORDERED: Diazepam 5 MG Tab PO ONE (07:34)
== END 2023-05-03 09:12 | disposition home or self-care (01) ==
LOC: MW.ED 07:10
DX: M54.42 Lumbago with sciatica, left side (principal); I10 Essential (primary) hypertension; E11.9 Type 2 diabetes mellitus without complications; J45.909 Unspecified asthma, uncomplicated; E78.00 Pure hypercholesterolemia, unspecified; Z79.899 Other long term (current) drug therapy
CPT/HCPCS: 72131; 96372; 99283; J1100; J1885

== ENCOUNTER 2023-05-05 08:27 | Emergency (ER) | payer MEDICARE, BC ==
[2023-05-05] MEDS ORDERED: Ibuprofen 600 MG Tab PO ONE (08:52)
[2023-05-05] MEDS ORDERED: Acetaminophen/HYDROcodone 325-5 MG Tab PO ONE ×2 (09:44→10:52)
== END 2023-05-05 15:19 | disposition home or self-care (01) ==
LOC: MW.ED 08:27
DX: S92.342A Displaced fracture of fourth metatarsal bone, left foot, initial encounter for closed fracture (principal); S92.352A Displaced fracture of fifth metatarsal bone, left foot, initial encounter for closed fracture; M54.42 Lumbago with sciatica, left side; E78.00 Pure hypercholesterolemia, unspecified; I10 Essential (primary) hypertension; J45.909 Unspecified asthma, uncomplicated; E11.9 Type 2 diabetes mellitus without complications; M19.90 Unspecified osteoarthritis, unspecified site; Z79.899 Other long term (current) drug therapy; W18.30XA Fall on same level, unspecified, initial encounter
CPT/HCPCS: 29515; 73630; 74176; 99284; A9270; 93010; 99283

== ENCOUNTER 2023-05-13 13:11 | Observation (INO) | payer MEDICARE, BC ==
[2023-05-13] MEDS ORDERED: Ondansetron 4 MG/2 ML SDV IVPUSH ONE (13:21)
[2023-05-13 15:00] LABS: BASOPHILS PERCENT AUTO 0.2 % (0.0-1.5); EOSINOPHILS ABSOLUTE AUTO 0.1 K/uL (0.0-0.7); EOSINOPHILS PERCENT AUTO 0.5 % (0.0-7.0); HEMATOCRIT 41.1 % (36.0-46.0); HEMOGLOBIN 14.2 g/dL (12.0-16.0); LYMPHOCYTES ABSOLUTE AUTO 1.4 K/uL (0.6-2.4); LYMPHOCYTES PERCENT AUTO 14.2 % (16.0-40.0); MEAN CORPUSCULAR HEMOGLOBIN 28.5 pg (27.0-32.0); MEAN CORPUSCULAR HGB CONC 34.5 g/dL (31.0-37.0); MEAN CORPUSCULAR VOLUME 82.4 fL (80.0-98.0); MONOCYTES ABSOLUTE AUTO 1.2 K/uL (0.0-0.8); MONOCYTES PERCENT AUTO 11.8 % (0.0-15.0); NEUTROPHILS ABSOLUTE AUTO 7.2 K/uL (1.4-5.7); NEUTROPHILS PERCENT AUTO 73.3 % (48.0-80.0); NRBC ABSOLUTE 0 K/uL; PLATELET COUNT,PLT 445 K/uL (150-400); RED BLOOD CELL COUNT 4.99 M/uL (4.30-5.90); WHITE BLOOD CELL COUNT,WBC 9.76 K/uL (4.0-11.0)
[2023-05-13] MEDS ORDERED: Lactated Ringers 1,000 ML IV SCH (15:00)
[2023-05-13 15:07] LABS: APPEARANCE,URINE CLEAR; BILIRUBIN,URINE NEGATIVE (NEGATIVE); COLOR,URINE YELLOW; GLUCOSE,URINE NEGATIVE (NEGATIVE); KETONES,URINE TRACE mg/dL (NEGATIVE); LEUKOCYTE ESTERASE,URINE NEGATIVE (NEGATIVE); NITRITE,URINE NEGATIVE (NEGATIVE); OCCULT BLOOD,URINE NEGATIVE (NEGATIVE); PROTEIN,URINE NEGATIVE (NEGATIVE); UROBILINOGEN,URINE 0.2 EU/dL (<2.0)
[2023-05-13 15:19] LABS: A/G RATIO 0.8 (0.9-1.6); ALBUMIN 3.6 g/dL (3.4-5.0); BILIRUBIN TOTAL 0.5 mg/dL (0.2-1.0); CALCIUM 9.2 mg/dL (8.5-10.1); CARBON DIOXIDE,CO2 26.5 mmol/L (21.0-32.0); CREATININE 0.8 mg/dL (0.6-1.0); EST CRCL DRUG DOSING (CG) 51.66 mL/min; MAGNESIUM 1.4 mg/dL (1.8-2.4); POTASSIUM,K 3.7 mmol/L (3.5-5.1); PROTEIN TOTAL,TP 7.9 g/dL (6.4-8.2)
[2023-05-13 15:27] LABS: LACTIC ACID 0.8 mmol/L (0.4-2.0)
[2023-05-13] MEDS ORDERED: Magnesium Sulfate/Water 2 GM in Premix Bag 1 BAG IV ONE (15:39)
[2023-05-13 17:23] LABS: A/G RATIO 0.9 (0.9-1.6); ALBUMIN 3.4 g/dL (3.4-5.0); BILIRUBIN TOTAL 0.5 mg/dL (0.2-1.0); CALCIUM 8.8 mg/dL (8.5-10.1); CARBON DIOXIDE,CO2 25.9 mmol/L (21.0-32.0); CREATININE 0.7 mg/dL (0.6-1.0); EST CRCL DRUG DOSING (CG) 59.04 mL/min; PROTEIN TOTAL,TP 7.4 g/dL (6.4-8.2)
[2023-05-13 17:25] LABS: POTASSIUM,URINE RANDOM 23.3 mmol/L
[2023-05-13] MEDS ORDERED: Ibuprofen 600 MG Tab PO PRN (20:00)
[2023-05-13] MEDS ORDERED: Sodium Chloride 0.9% 1,000 ML IV SCH (20:00)
[2023-05-13] MEDS ORDERED: Acetaminophen 325 MG Tab PO PRN (20:00)
[2023-05-13] MEDS ORDERED: ALPRAZolam 0.25 MG Tab PO PRN (21:30)
[2023-05-13] MEDS ORDERED: Cyclobenzaprine 10 MG Tab PO PRN (21:30)
[2023-05-13] MEDS: traMADol 50 MG Tab PO PRN (21:56)
[2023-05-13] MEDS ORDERED: REMDESIVIR 200 MG in Sodium Chloride 0.9% 250 ML IV ONE (23:15)
[2023-05-13] MEDS ORDERED: 50% Dextrose in Water 50 ML Syringe IVPUSH PRN (23:25)
[2023-05-13] MEDS ORDERED: Glucagon,Human Recombinant 1 MG Vial IM PRN (23:25)
[2023-05-13] MEDS ORDERED: Ondansetron 4 MG/2 ML SDV IVPUSH PRN (23:41)
[2023-05-13] MEDS ORDERED: Enoxaparin 40 MG/0.4 ML Syringe SUBCUT SCH (23:45)
[2023-05-14 00:06] LABS: CALCIUM 8.5 mg/dL (8.5-10.1); CREATININE 0.7 mg/dL (0.6-1.0); EST CRCL DRUG DOSING (CG) 59.04 mL/min
[2023-05-14 05:57] LABS: BASOPHILS PERCENT AUTO 0.2 % (0.0-1.5); EOSINOPHILS ABSOLUTE AUTO 0.1 K/uL (0.0-0.7); EOSINOPHILS PERCENT AUTO 0.6 % (0.0-7.0); HEMATOCRIT 37.2 % (36.0-46.0); HEMOGLOBIN 12.7 g/dL (12.0-16.0); LYMPHOCYTES ABSOLUTE AUTO 1.9 K/uL (0.6-2.4); LYMPHOCYTES PERCENT AUTO 21.7 % (16.0-40.0); MEAN CORPUSCULAR HEMOGLOBIN 28.3 pg (27.0-32.0); MEAN CORPUSCULAR HGB CONC 34.1 g/dL (31.0-37.0); MEAN CORPUSCULAR VOLUME 82.9 fL (80.0-98.0); MONOCYTES ABSOLUTE AUTO 1.2 K/uL (0.0-0.8); MONOCYTES PERCENT AUTO 13.3 % (0.0-15.0); NEUTROPHILS ABSOLUTE AUTO 5.6 K/uL (1.4-5.7); NEUTROPHILS PERCENT AUTO 64.2 % (48.0-80.0); NRBC ABSOLUTE 0 K/uL; PLATELET COUNT,PLT 384 K/uL (150-400); RED BLOOD CELL COUNT 4.49 M/uL (4.30-5.90); WHITE BLOOD CELL COUNT,WBC 8.66 K/uL (4.0-11.0)
[2023-05-14] MEDS: traMADol 50 MG Tab PO PRN (06:11)
[2023-05-14 06:32] LABS: A/G RATIO 0.8 (0.9-1.6); ALBUMIN 2.9 g/dL (3.4-5.0); BILIRUBIN TOTAL 0.3 mg/dL (0.2-1.0); CALCIUM 8.1 mg/dL (8.5-10.1); CARBON DIOXIDE,CO2 24.1 mmol/L (21.0-32.0); CREATININE 0.6 mg/dL (0.6-1.0); EST CRCL DRUG DOSING (CG) 68.88 mL/min; MAGNESIUM 1.8 mg/dL (1.8-2.4); PHOSPHORUS 3.7 mg/dL (2.6-4.7); POTASSIUM,K 3.9 mmol/L (3.5-5.1); PROTEIN TOTAL,TP 6.6 g/dL (6.4-8.2)
[2023-05-14] MEDS ORDERED: Insulin Aspart 100 Units/ML 3 ML Pen SUBCUT SCH (07:30)
[2023-05-14] MEDS ORDERED: amLODIPine 5 MG Tab PO SCH (09:00)
[2023-05-14] MEDS ORDERED: atorvaSTATin 40 MG Tab PO SCH (21:00)
[2023-05-14] MEDS ORDERED: REMDESIVIR 100 MG in Sodium Chloride 0.9% 100 ML IV SCH (23:30)
== END 2023-05-14 13:30 | disposition home or self-care (01) ==
LOC: MW.ED 13:11 → MW.MS 16:36
PROVIDERS: ADMIT Internal Medicine; ATTEND Internal Medicine
DX: E87.1 Hypo-osmolality and hyponatremia (principal); U07.1 COVID-19; E86.0 Dehydration; I10 Essential (primary) hypertension; E11.9 Type 2 diabetes mellitus without complications; G89.29 Other chronic pain; E78.00 Pure hypercholesterolemia, unspecified; J45.909 Unspecified asthma, uncomplicated; F41.9 Anxiety disorder, unspecified; Z79.899 Other long term (current) drug therapy
CPT/HCPCS: 36415; 71045; 73501; 80048; 80053; 81003; 82436; 82947; 83605; 83690; 83735; 83930; 83935; 84100; 84133; 84300; 84484; 85025; 87040; 93005; 96361; 96365; 96375; 99285; A9270; J0248; J1650; J1815; J2405; J3475; J7030; J7050; J7120; U0002; 87077; 87186; 93010; 96372; G0378

== ENCOUNTER 2023-05-23 12:08 | Emergency (ER) | payer MEDICARE, BC | END 2023-05-23 14:47 | disposition left against medical advice (07) | LOC: MW.ED 12:08 | DX: Z53.21 Procedure and treatment not carried out due to patient leaving prior to being seen by health care provider (principal) ==

== ENCOUNTER 2023-05-23 16:36 | Emergency (ER) | payer MEDICARE, BC ==
[2023-05-23] MEDS ORDERED: Sodium Chloride 0.9% 10 ML Syringe FLUSH PRN (17:17)
[2023-05-23] MEDS ORDERED: Sodium Chloride 0.9% 2.5 ML Syringe FLUSH PRN (17:17)
[2023-05-23] MEDS ORDERED: Sodium Chloride 0.9% 1,000 ML IV STA (17:51)
[2023-05-23] MEDS ORDERED: Ondansetron 4 MG/2 ML SDV IVPUSH STA (18:13)
[2023-05-23 18:34] LABS: BASOPHILS PERCENT AUTO 0.2 % (0.0-1.5); EOSINOPHILS PERCENT AUTO 0.3 % (0.0-7.0); HEMATOCRIT 38.5 % (36.0-46.0); LYMPHOCYTES ABSOLUTE AUTO 1.6 K/uL (0.6-2.4); LYMPHOCYTES PERCENT AUTO 12.1 % (16.0-40.0); MEAN CORPUSCULAR HEMOGLOBIN 28.1 pg (27.0-32.0); MEAN CORPUSCULAR HGB CONC 33.8 g/dL (31.0-37.0); MEAN CORPUSCULAR VOLUME 83.2 fL (80.0-98.0); MONOCYTES ABSOLUTE AUTO 1.8 K/uL (0.0-0.8); MONOCYTES PERCENT AUTO 13.8 % (0.0-15.0); NEUTROPHILS ABSOLUTE AUTO 9.7 K/uL (1.4-5.7); NEUTROPHILS PERCENT AUTO 73.6 % (48.0-80.0); NRBC ABSOLUTE 0 K/uL; PLATELET COUNT,PLT 378 K/uL (150-400); RED BLOOD CELL COUNT 4.63 M/uL (4.30-5.90); WHITE BLOOD CELL COUNT,WBC 13.15 K/uL (4.0-11.0)
[2023-05-23 18:52] LABS: A/G RATIO 0.8 (0.9-1.6); ALBUMIN 2.9 g/dL (3.4-5.0); CALCIUM 9.4 mg/dL (8.5-10.1); CARBON DIOXIDE,CO2 23.5 mmol/L (21.0-32.0); CREATININE 1.2 mg/dL (0.6-1.0); EST CRCL DRUG DOSING (CG) 34.44 mL/min; POTASSIUM,K 3.3 mmol/L (3.5-5.1); PROTEIN TOTAL,TP 6.6 g/dL (6.4-8.2)
[2023-05-23] MEDS ORDERED: Sodium Chloride 0.9% 500 ML IV ONE (19:10)
[2023-05-23] MEDS ORDERED: Aluminum Hydroxide/Magnesium Hydroxide/Simethicone XS Susp 30 ML Cup PO STA (19:25)
== END 2023-05-23 21:16 | disposition home or self-care (01) ==
LOC: MW.ED 16:36
DX: N17.9 Acute kidney failure, unspecified (principal); R11.11 Vomiting without nausea; E78.00 Pure hypercholesterolemia, unspecified; I10 Essential (primary) hypertension; E11.9 Type 2 diabetes mellitus without complications; Z86.16 Personal history of COVID-19; Z79.899 Other long term (current) drug therapy
CPT/HCPCS: 36415; 74018; 80053; 85025; 93005; 96361; 96374; 99284; A9270; J2405; J3490; J7030; 93010

== ENCOUNTER 2023-06-17 06:48 | Day surgery (SDC) | payer MEDICARE, BC ==
[~2023-06-17 06:48] MED LIST: Acetaminophen 1,000 MG in Premix Bag 1 BAG IV SCH; Lactated Ringers 1,000 ML IV SCH; ceFAZolin 2 GM in Sodium Chloride 0.9% 50 ML IV ONE
[2023-06-17] MEDS ORDERED: Bupivacaine 0.5% 10 ML SDV ONE (07:28)
[2023-06-17] MEDS ORDERED: Heparin Sodium 100 Units/ML 3 ML Syringe ONE (07:28)
[2023-06-17] MEDS ORDERED: Lidocaine 1% 20 ML MDV ONE (07:28)
[2023-06-17] MEDS ORDERED: Metoclopramide 10 MG/2 ML SDV IVPUSH PRN (07:32)
[2023-06-17] MEDS ORDERED: Naloxone 0.4 MG/ML SDV IVPUSH PRN (07:32)
[2023-06-17] MEDS ORDERED: fentaNYL 50 MCG/ML SDV IVPUSH PRN (07:32)
[2023-06-17] MEDS ORDERED: HYDROmorphone 1 MG/ML Syringe IVPUSH PRN (07:32)
[2023-06-17] MEDS ORDERED: Morphine 2 MG/ML SYRINGE IVPUSH PRN (07:32)
[2023-06-17] MEDS ORDERED: droPERidol 5 MG/2 ML SDV IVPUSH PRN (07:32)
[2023-06-17] MEDS ORDERED: Ondansetron 4 MG/2 ML SDV IVPUSH PRN (07:32)
[2023-06-17] MEDS ORDERED: Albuterol 0.083% 2.5 MG/3 ML Neb Soln NEB PRN (07:32)
[2023-06-17] MEDS ORDERED: propofoL 50 ML ONE (07:36)
[2023-06-17] MEDS ORDERED: Propofol 200 MG/20 ML SDV ONE ×2 (07:36→09:11)
[2023-06-17] MEDS ORDERED: fentaNYL 100 MCG/2 ML SDV ONE ×2 (07:37→08:25)
[2023-06-17] MEDS ORDERED: Ketorolac 30 MG/ML SDV IVPUSH ONE (10:19)
[2023-06-17] MEDS ORDERED: Ketorolac 30 MG/ML SDV ONE (10:26)
== END 2023-06-17 12:35 | disposition home or self-care (01) ==
LOC: MW.SDS 06:48
PROVIDERS: ATTEND Surgery
DX: C85.91 Non-Hodgkin lymphoma, unspecified, lymph nodes of head, face, and neck (principal); I10 Essential (primary) hypertension; E11.9 Type 2 diabetes mellitus without complications; F41.9 Anxiety disorder, unspecified; E78.00 Pure hypercholesterolemia, unspecified; Z79.82 Long term (current) use of aspirin; Z79.84 Long term (current) use of oral hypoglycemic drugs; Z79.899 Other long term (current) drug therapy; Z98.890 Other specified postprocedural states
CPT/HCPCS: 36561; 71045; 76000; 82947; J0131; J1642; J1885; J2704; J3010; J3490; J7120

== ENCOUNTER 2023-06-30 06:57 | Emergency (ER) | payer MEDICARE, BC ==
[2023-06-30] MEDS ORDERED: Albuterol 0.083% 2.5 MG/3 ML Neb Soln NEB ONE (07:26)
[2023-06-30] MEDS ORDERED: Naloxone 0.4 MG/ML SDV IVPUSH PRN (07:41)
[2023-06-30] MEDS ORDERED: Morphine 4 MG/ML Syringe IM ONE (07:41)
[2023-06-30] MEDS ORDERED: Sodium Chloride 0.9% 1,000 ML IV ONE (07:46)
[2023-06-30] MEDS ORDERED: Morphine 4 MG/ML Syringe IVPUSH ONE ×2 (08:20→10:05)
[2023-06-30 08:28] LABS: APPEARANCE,URINE CLEAR; BILIRUBIN,URINE NEGATIVE (NEGATIVE); COLOR,URINE YELLOW; GLUCOSE,URINE NEGATIVE (NEGATIVE); KETONES,URINE NEGATIVE (NEGATIVE); LEUKOCYTE ESTERASE,URINE NEGATIVE (NEGATIVE); NITRITE,URINE NEGATIVE (NEGATIVE); OCCULT BLOOD,URINE NEGATIVE (NEGATIVE); PH,URINE 8.5 (5.0-8.0); PROTEIN,URINE NEGATIVE (NEGATIVE); UROBILINOGEN,URINE 0.2 EU/dL (<2.0)
[2023-06-30 08:33] LABS: A/G RATIO 0.8 (0.9-1.6); ALBUMIN 2.7 g/dL (3.4-5.0); BILIRUBIN TOTAL 1.4 mg/dL (0.2-1.0); CALCIUM 8.6 mg/dL (8.5-10.1); CARBON DIOXIDE,CO2 27.1 mmol/L (21.0-32.0); CREATININE 0.7 mg/dL (0.6-1.0); EST CRCL DRUG DOSING (CG) 64.01 mL/min; POTASSIUM,K 3.3 mmol/L (3.5-5.1)
[2023-06-30 08:34] LABS: LACTIC ACID 1.4 mmol/L (0.4-2.0)
[2023-06-30 08:40] LABS: HEMATOCRIT 35.4 % (36.0-46.0); HEMOGLOBIN 11.7 g/dL (12.0-16.0); MEAN CORPUSCULAR HEMOGLOBIN 28.1 pg (27.0-32.0); MEAN CORPUSCULAR HGB CONC 33.1 g/dL (31.0-37.0); MEAN CORPUSCULAR VOLUME 84.9 fL (80.0-98.0); NRBC ABSOLUTE 0 K/uL; PLATELET COUNT,PLT 155 K/uL (150-400); RED BLOOD CELL COUNT 4.17 M/uL (4.30-5.90); WHITE BLOOD CELL COUNT,WBC 0.47 K/uL (4.0-11.0)
[2023-06-30] MEDS ORDERED: Iopamidol 755 MG/ML 500 ML Multipack Bottle IVPUSH STA (09:05)
[2023-06-30] MEDS ORDERED: Ondansetron 4 MG/2 ML SDV IVPUSH ONE (09:07)
[2023-06-30 09:17] LABS: SEG NEUTROPHILS PERCENT MAN 6 % (48.0-80.0)
[2023-06-30 09:18] LABS: EOSINOPHILS PERCENT MAN 10 % (0.0-7.0); LYMPHOCYTES ABSOLUTE MAN 0.3 (0.6-2.4); LYMPHOCYTES PERCENT MAN 74 % (16.0-40.0); METAMYELOCYTE ABSOLUTE MAN 0; METAMYELOCYTE PERCENT MAN 2 %; MONOCYTES ABSOLUTE MAN 0.1 (0.0-0.8); MONOCYTES PERCENT MAN 12 % (0.0-15.0); MYELOCYTE ABSOLUTE MAN 0; MYELOCYTE PERCENT MAN 2 %
[2023-06-30 09:19] LABS: CORONAVIRUS COVID-19 NAA NEGATIVE (NEGATIVE); INFLUENZA A NAA NEGATIVE (NEGATIVE); INFLUENZA B NAA NEGATIVE (NEGATIVE)
[2023-07-01] MEDS ORDERED: Ondansetron 4 MG/2 ML SDV IVPUSH ONE (12:00)
== END 2023-06-30 12:09 | disposition home or self-care (01) ==
LOC: MW.ED 06:57
DX: R10.9 Unspecified abdominal pain (principal); M53.3 Sacrococcygeal disorders, not elsewhere classified; I10 Essential (primary) hypertension; E78.00 Pure hypercholesterolemia, unspecified; E11.9 Type 2 diabetes mellitus without complications; Z20.822 Contact with and (suspected) exposure to COVID-19; Z86.16 Personal history of COVID-19; Z79.84 Long term (current) use of oral hypoglycemic drugs; Z79.899 Other long term (current) drug therapy
CPT/HCPCS: 0240U; 36415; 74177; 80053; 81003; 83605; 84484; 85025; 93005; 96361; 96374; 96375; 96376; 99284; J2270; J2405; J7030; Q9967; 93010; J7620-GY

== ENCOUNTER 2023-09-16 10:05 | Emergency (ER) | payer MEDICARE, BC ==
[2023-09-16] MEDS ORDERED: Sodium Chloride 0.9% 1,000 ML IV ONE (11:26)
[2023-09-16 12:06] LABS: BASOPHILS ABSOLUTE AUTO 0.04 K/uL (0.00-0.20); BASOPHILS PERCENT AUTO 0.5 % (0.0-1.0); EOSINOPHILS ABSOLUTE AUTO 0.06 K/uL (0.00-0.45); EOSINOPHILS PERCENT AUTO 0.7 % (0.0-6.0); HEMATOCRIT 27.8 % (37.0-47.0); HEMOGLOBIN 9.5 g/dL (12.0-16.0); IMMATURE GRAN ABSOLUTE AUTO 0.08 K/uL (0.00-0.05); IMMATURE GRAN PERCENT AUTO 0.9 % (0.0-0.4); LYMPHOCYTES ABSOLUTE AUTO 0.86 K/uL (1.00-4.80); LYMPHOCYTES PERCENT AUTO 9.9 % (24.0-44.0); MEAN CORPUSCULAR HEMOGLOBIN 31.4 pg (28.0-32.0); MEAN CORPUSCULAR HGB CONC 34.2 g/dL (32.0-36.0); MEAN CORPUSCULAR VOLUME 91.7 fL (83.0-99.0); MEAN PLATELET VOLUME 8.6 fL (9.4-12.3); MONOCYTES ABSOLUTE AUTO 1.15 K/uL (0.00-0.80); MONOCYTES PERCENT AUTO 13.2 % (0.0-8.0); NEUTROPHILS ABSOLUTE AUTO 6.51 K/uL (1.80-7.70); NEUTROPHILS PERCENT AUTO 74.8 % (41.0-71.0); PLATELET COUNT,PLT 385 K/uL (150-400); RED BLOOD CELL COUNT 3.03 M/uL (4.10-5.30)
[2023-09-16 12:18] LABS: APPEARANCE,URINE SLT CLOUDY; BILIRUBIN,URINE NEGATIVE (NEGATIVE); COLOR,URINE YELLOW; GLUCOSE,URINE NEGATIVE (NEGATIVE); KETONES,URINE NEGATIVE (NEGATIVE); LEUKOCYTE ESTERASE,URINE SMALL (NEGATIVE); NITRITE,URINE NEGATIVE (NEGATIVE); OCCULT BLOOD,URINE NEGATIVE (NEGATIVE); PROTEIN,URINE 30 mg/dL (NEGATIVE); UROBILINOGEN,URINE 0.2 EU/dL (<2.0)
[2023-09-16 12:38] LABS: LACTIC ACID 1.2 mmol/L (0.4-2.0)
[2023-09-16 12:40] LABS: BACTERIA,URINE FEW (NEGATIVE); EPITHELIAL CELLS,URINE RARE (NONE-FEW); RBC,URINE 0-2 (0-2/HPF); WBC,URINE 20-25 (0-5/HPF)
[2023-09-16 12:44] LABS: A/G RATIO 0.9 (0.9-1.6); ALBUMIN 3.1 g/dL (3.4-5.0); BILIRUBIN TOTAL 0.3 mg/dL (0.2-1.0); CALCIUM 9.3 mg/dL (8.5-10.1); CARBON DIOXIDE,CO2 23.9 mmol/L (21.0-32.0); CREATININE 0.9 mg/dL (0.6-1.0); EST CRCL DRUG DOSING (CG) 45.92 mL/min; POTASSIUM,K 3.4 mmol/L (3.5-5.1); PROTEIN TOTAL,TP 6.5 g/dL (6.4-8.2)
== END 2023-09-16 13:24 | disposition home or self-care (01) ==
LOC: MW.ED 10:05
DX: N39.0 Urinary tract infection, site not specified (principal); E11.9 Type 2 diabetes mellitus without complications; I10 Essential (primary) hypertension; Z79.84 Long term (current) use of oral hypoglycemic drugs; Z86.16 Personal history of COVID-19; Z79.899 Other long term (current) drug therapy
CPT/HCPCS: 36415; 80053; 81001; 83605; 85025; 87040; 87086; 96360; 99283; J1642; J7030

== ENCOUNTER 2025-09-12 07:28 | Observation (INO) | payer BC, MEDICARE ==
[2025-09-12] MEDS ORDERED: Sodium Chloride 0.9% 2.5 ML Syringe FLUSH PRN ×2 (08:34→17:41)
[2025-09-12] MEDS ORDERED: Sodium Chloride 0.9% 10 ML Syringe FLUSH PRN ×2 (08:34→17:41)
[2025-09-12 09:06] LABS: BASOPHILS ABSOLUTE AUTO 0.02 K/uL (0.00-0.20); BASOPHILS PERCENT AUTO 0.3 % (0.0-1.0); EOSINOPHILS ABSOLUTE AUTO 0.03 K/uL (0.00-0.45); EOSINOPHILS PERCENT AUTO 0.4 % (0.0-6.0); IMMATURE GRAN ABSOLUTE AUTO 0.02 K/uL (0.00-0.05); IMMATURE GRAN PERCENT AUTO 0.3 % (0.0-0.4); LYMPHOCYTES ABSOLUTE AUTO 1.01 K/uL (1.00-4.80); LYMPHOCYTES PERCENT AUTO 13.5 % (24.0-44.0); MEAN PLATELET VOLUME 9.0 fL (9.4-12.3); MONOCYTES ABSOLUTE AUTO 0.76 K/uL (0.00-0.80); MONOCYTES PERCENT AUTO 10.1 % (0.0-8.0); NEUTROPHILS ABSOLUTE AUTO 5.66 K/uL (1.80-7.70); NEUTROPHILS PERCENT AUTO 75.4 % (41.0-71.0); NRBC ABSOLUTE 0.00 K/uL (0.00-0.02); NRBC PERCENT 0.0 /100WBC (0.0-0.2); PLATELET COUNT,PLT 311 K/uL (150-400); RED BLOOD CELL COUNT 4.26 M/uL (4.10-5.30); WHITE BLOOD CELL COUNT,WBC 7.50 K/uL (3.9-11.3)
[2025-09-12 09:46] LABS: A/G RATIO 0.8 (0.9-1.6); ALANINE AMINOTRANSFERASE,ALT 20.0 IU/L (14-63); ASPARTATE AMNIOTRANSFERASE,AST 24.0 IU/L (15-37); BILIRUBIN TOTAL 0.7 mg/dL (0.2-1.0); BLOOD UREA NITROGEN,BUN 11.0 mg/dL (7.0-18.0); CARBON DIOXIDE,CO2 23.9 mmol/L (21.0-32.0); CHLORIDE,CL 100.0 mmol/L (98-107); CREATININE 1.0 mg/dL (0.6-1.0); EST CRCL DRUG DOSING (CG) 40.04 mL/min; GLUCOSE RANDOM 137.0 mg/dL (74-106); POTASSIUM,K 3.9 mmol/L (3.5-5.1); PROTEIN TOTAL,TP 7.5 g/dL (6.4-8.2); SODIUM,NA 137.0 mmol/L (136-145)
[2025-09-12 09:47] LABS: ESTIMATED GFR 58.0 mL/min (>60)
[2025-09-12] MEDS: Magnesium Sulfate 2 GM/50 mL 2 GM in Premix Bag 1 BAG IV ONE (10:06)
[2025-09-12 10:37] LABS: APPEARANCE,URINE CLEAR; GLUCOSE,URINE NEGATIVE (NEGATIVE); OCCULT BLOOD,URINE NEGATIVE (NEGATIVE)
[2025-09-12] MEDS ORDERED: droPERidol 2.5 MG/ML SDV IVPUSH ONE (10:42)
[2025-09-12 10:52] LABS: EPITHELIAL CELLS,URINE RARE (NONE-FEW)
[2025-09-12 11:21] LABS: CORONAVIRUS COVID-19 NAA POSITIVE (NEGATIVE); INFLUENZA A NAA NEGATIVE (NEGATIVE); INFLUENZA B NAA NEGATIVE (NEGATIVE); RESPIRATORY SYNCYTIAL VIR NAA NEGATIVE (NEGATIVE)
[2025-09-12] MEDS ORDERED: 50% Dextrose in Water 50 ML Syringe IVPUSH PRN (17:04)
[2025-09-12] MEDS: Ondansetron 4 MG/2 ML SDV IVPUSH PRN (17:36)
[2025-09-12] MEDS: Nirmatrelvir/Ritonavir 150 MG/100 MG Dose Pack (Renal Dose) PO SCH (20:35)
[2025-09-13 06:47] LABS: BASOPHILS ABSOLUTE AUTO 0.01 K/uL (0.00-0.20); BASOPHILS PERCENT AUTO 0.2 % (0.0-1.0); EOSINOPHILS ABSOLUTE AUTO 0.14 K/uL (0.00-0.45); EOSINOPHILS PERCENT AUTO 3.5 % (0.0-6.0); IMMATURE GRAN ABSOLUTE AUTO 0.01 K/uL (0.00-0.05); IMMATURE GRAN PERCENT AUTO 0.2 % (0.0-0.4); LYMPHOCYTES ABSOLUTE AUTO 0.88 K/uL (1.00-4.80); LYMPHOCYTES PERCENT AUTO 21.7 % (24.0-44.0); MEAN PLATELET VOLUME 8.7 fL (9.4-12.3); MONOCYTES ABSOLUTE AUTO 0.61 K/uL (0.00-0.80); MONOCYTES PERCENT AUTO 15.1 % (0.0-8.0); NEUTROPHILS ABSOLUTE AUTO 2.40 K/uL (1.80-7.70); NEUTROPHILS PERCENT AUTO 59.3 % (41.0-71.0); NRBC ABSOLUTE 0.00 K/uL (0.00-0.02); NRBC PERCENT 0.0 /100WBC (0.0-0.2); PLATELET COUNT,PLT 267 K/uL (150-400); RED BLOOD CELL COUNT 3.60 M/uL (4.10-5.30); WHITE BLOOD CELL COUNT,WBC 4.05 K/uL (3.9-11.3)
[2025-09-13 07:09] LABS: A/G RATIO 1.0 (0.9-1.6); ALANINE AMINOTRANSFERASE,ALT 16.0 IU/L (14-63); ASPARTATE AMNIOTRANSFERASE,AST 12.0 IU/L (15-37); BILIRUBIN TOTAL 0.7 mg/dL (0.2-1.0); BLOOD UREA NITROGEN,BUN 10.0 mg/dL (7.0-18.0); CARBON DIOXIDE,CO2 25.3 mmol/L (21.0-32.0); CHLORIDE,CL 104.0 mmol/L (98-107); CREATININE 0.8 mg/dL (0.6-1.0); EST CRCL DRUG DOSING (CG) 50.05 mL/min; GLUCOSE RANDOM 121.0 mg/dL (74-106); POTASSIUM,K 4.0 mmol/L (3.5-5.1); PROTEIN TOTAL,TP 6.0 g/dL (6.4-8.2); SODIUM,NA 137.0 mmol/L (136-145)
[2025-09-13 07:10] LABS: ESTIMATED GFR 75.0 mL/min (>60)
[2025-09-13] MEDS: Lisinopril/Hydrochlorothiazide 10-12.5 MG Tab PO SCH (08:21)
== END 2025-09-13 12:13 | disposition home or self-care (01) ==
LOC: MW.ED 07:28 → MW.MS 13:19
PROVIDERS: ADMIT Internal Medicine; ATTEND Internal Medicine
DX: U07.1 COVID-19 (principal); E86.0 Dehydration; R11.2 Nausea with vomiting, unspecified; I10 Essential (primary) hypertension; E11.9 Type 2 diabetes mellitus without complications; E78.5 Hyperlipidemia, unspecified; Z79.899 Other long term (current) drug therapy; Z20.822 Contact with and (suspected) exposure to COVID-19
CPT/HCPCS: 36415; 71046; 80053; 81001; 82947; 83605; 83690; 83735; 84484; 85025; 87086; 87637; 87651; 93005; 96361; 96365; 96372; 96375; 96376; 99285; A9270; G0378; J1650; J2405; J3475; J7030; 99222; 99239; 99284